=== PATIENT | male | born 1950 | race Caucasian/White ===

== ENCOUNTER 2019-12-30 06:48 | Outpatient (NON) | payer MEDICARE, SELFPAY ==
[2019-12-31 13:52] LABS: SARS-CoV-2 RNA PCR Negative
== END 2019-12-30 06:49 ==
PROVIDERS: PCP Internal Medicine; Visit Provider Internal Medicine
DX: Z20.828 Contact with and (suspected) exposure to other viral communicable diseases (principal); R50.9 Fever, unspecified
CPT/HCPCS: 87635; C9803; U0003

== ENCOUNTER 2023-01-18 10:17 | Outpatient (CLI) | payer MEDICARE, SELFPAY ==
--- NOTE | ~2023-01-18 | XR_ITS ---
XR abdomen/kub 1V 01/18/2023 10:38 Indication: Renal stones Procedure: KUB Comparison: 08/10/2011 Findings: There are clustered stones in the lower pole of the left kidney. Nonobstructive bowel gas p attern. Moderate lumbar spondylosis. There is osteoarthritis of the hips. Impression: 1: Left nephrolithiasis. Reviewed, dictated and finalized at location A. Impression: 1: Left nephrolithiasis.
== END 2023-01-18 10:18 | disposition home or self-care (01) ==
LOC: ANHIMG 10:24
PROVIDERS: PCP Physician Assistant Medical; Visit Provider Urology
DX: N20.0 Calculus of kidney (principal)
CPT/HCPCS: 74018

== ENCOUNTER 2023-02-22 13:11 | Day surgery (SDC) | payer MEDICARE, SELFPAY ==
[2023-02-22] VITALS (8 sets, daily range): BP systolic 100–132; BP diastolic 67–102; PULSE 66–79; RESP 10–20; TEMP 36.3–36.6; O2SAT 98–100
--- NOTE | ~2023-02-22 | XR_ITS ---
XR abdomen/kub 1V 02/22/2023 13:25 Indication: Preop ESWL Procedure: KUB Comparison: 01/18/2023 Findings: There are left renal stones. Bowel gas pattern nonobstructive. Moderate lumbar spondylosis. No acute osseous abnormality. There is mild osteoarthritis of the hips. Impression: 1: Left nephrolithiasis. Reviewed, dictated and finalized at location B. NT DEVELOPMENT DIRECTOR Impression: 1: Left nephrolithiasis.
--- NOTE | 2023-02-22 12:42 | ECG_ITS ---
Measurements Intervals [place] Rate: 65 P: 50 ME: 170 QRS: -18 QRSD: 99 T: 22 QT: 414 QTc: 431 Interpretive Statements SINUS RHYTHM NO PREVIOUS ECG AVAILABLE FOR COMPARISON Electronically Signed On 02-23-2023 13:06:38 DIRECTOR PEDIATRIC by Dereje Ruiz M.D.
[2023-02-22 13:25] LABS: Appearance Urine Clear (Clear); Bilirubin Urine Negative (Negative); Blood Urine Negative (Negative); Color Urine Yellow (Yellow); Glucose Urine UA Negative (Negative); Ketones Urine 1+ mg/dL (Negative); Leukocyte Esterase Ur Negative LEU/UL (Negative); Nitrate Urine Negative (Negative); Protein Urine Negative (Negative); Specific Grav Ur 1.025 (1.001-1.035); Urobilinogen Urine 0.2 mg/dL (<2.0); pH Urine 5.5 (5.0-9.0)
[2023-02-22 13:42] LABS: Add Urine Microscopic? NO
--- NOTE | 2023-02-22 14:14 | WPDANESEPPF ---
Anes - Initial Pre Proc Eval Procedure: Operation Date: 02/22/23 14:00 Proposed Procedures p Left Extracorporeal Shock Wave Lithotripsy - Matthew Eagle MD Date/Time: 02/22/23 14:14 Surgeon: Matthew Eagle MD Pre Op Diagnosis: Left ESWL Patient Data Age: 72 Gender: M Height: Weight: Last Vital Signs Temp 36.6 C 02/22/23 13:40 Pulse 78 02/22/23 13:40 Resp 20 02/22/23 13:40 BP 132/78 02/22/23 13:40 Pulse Ox 100 02/22/23 13:40 O2 Del Method Room Air 02/22/23 13:40 Allergies Allergy/AdvReac Type Severity Reaction Status Date / Time No Known Allergies Allergy Unknown Verified 02/22/23 13:42 Home Medications Medication Instructions Recorded Confirmed Type aspirin 81 mg tablet,delayed 81 mg PO DAILY 10/25/21 02/22/23 History release (Adult Low Dose Aspirin) hydrochlorothiazide 12.5 mg tablet See Rx Instructions .Route 02/04/23 02/22/23 Rx .COMPLEX #90 tabs pravastatin 40 mg tablet See Rx Instructions .Route 02/04/23 02/22/23 Rx .COMPLEX #90 tabs Laboratory Tests 02/22/23 13:18 Urine Color Yellow (Yellow) Urine Appearance Clear (Clear) Urine pH 5.5 (5.0-9.0) Ur Specific [place] 1.025 (1.001-1.035) Urine Protein Negative mg/dL (Negative) Urine Glucose (UA) Negative mg/dL (Negative) Urine Ketones 1+ H mg/dL (Negative) Ur Blood (Man) Negative (Negative) Urine Nitrate Negative (Negative) Urine Bilirubin Negative (Negative) Urine Urobilinogen 0.2 mg/dL (<2.0) Leukocyte Esterase Rfl Negative OVIDIO/UL (Negative) Patient hx anesthesia problems: none Family hx anesthesia problems: none Results Review: All pre-operative results and documents have been reviewed as part of the pre-operative evaluation. [facility]LY [facility] Past Medical History Medical History Annual physical exam Dvt femoral (deep venous thrombosis) History of kidney stones HTN (hypertension) Shingles Surgical History Surgical History History of knee surgery stem cell regeneration therapy Social History Social History Smoking status: Never smoker Alcohol intake: current Substance use: never Substance use type: does not use Lack of Transportation: No Lack of Food: Never True Current Housing: I Have Housing Concerned About Future Housing: No Difficulty Paying Gas/Electric Bills: No Difficulty Paying for Meds: No Currently Unemployed: No Education: High School Diploma/GED Difficulty w/ Childcare or Family Care: No Living arrangements: with family Occupation/Education: retired Gender identity (if verbalized by the patient): Male Sexual Orientation (if Verbalized by the Patient): Straight or Heterosexual Spiritual care concerns: Yes Anes - Eval Final PreProcedure Day of Procedure 02/22/23 14:14 Patient weight: normal Heart: regular rate and rhythm Lungs: clear to auscultation Airway: Mallampati scale class II and special considerations retrognathia Neurological: alert and oriented Last oral intake: >/= 8 hours ASA classification: II Emergent: no Anesthetic plan: proceed Anesthesia type and monitoring: general LMA and standard monitoring Results Review: All pre-operative results and documents have been reviewed as part of the pre-operative evaluation. Informed Consent: The patient's anesthetic plan and its attendant risks and benefits were discussed with the patient/family/POA. Questions were solicited and answers provided to the satisfaction of the patient/family/POA.
[2023-02-22] MEDS: LACTATED RINGERS 1,000 ML 30 ML IV CONT (14:20)
[2023-02-22 14:46] LABS: Prothrombin Time 13.9 Seconds (11.1-14.7)
[2023-02-22 14:47] LABS: Partial Thromboplastin Time 30.3 SECONDS (22.3-36.8)
--- NOTE | 2023-02-22 14:57 | P.HP_ITS ---
H&P: HPI History of Present Illness Date/Time: 02/22/23 14:57 Chief Complaint: left renal calculus Narrative: 72 yr old male wit left renal calculus presents for left renal eswl Review of Systems Review of Systems: All systems reviewed & are unremarkable except as noted in HPI and below PMFSH Past Medical History Medical History Annual physical exam Dvt femoral (deep venous thrombosis) History of kidney stones HTN (hypertension) Shingles Surgical History Surgical History History of knee surgery stem cell regeneration therapy Social History Social History Smoking status: Never smoker Alcohol intake: current Substance use: never Substance use type: does not use Lack of Transportation: No Lack of Food: Never True Current Housing: I Have Housing Concerned About Future Housing: No Difficulty Paying Gas/Electric Bills: No Difficulty Paying for Meds: No Currently Unemployed: No Education: High School Diploma/GED Difficulty w/ Childcare or Family Care: No Living arrangements: with family Occupation/Education: retired Gender identity (if verbalized by the patient): Male Sexual Orientation (if Verbalized by the Patient): Straight or Heterosexual Spiritual care concerns: Yes Meds Home Medications and Allergies Home Medications Medication Instructions Recorded Confirmed Type aspirin 81 mg tablet,delayed 81 mg PO DAILY 10/25/21 02/22/23 History release (Adult Low Dose Aspirin) hydrochlorothiazide 12.5 mg tablet See Rx Instructions .Route 02/04/23 02/22/23 Rx .COMPLEX #90 tabs pravastatin 40 mg tablet See Rx Instructions .Route 02/04/23 02/22/23 Rx .COMPLEX #90 tabs Allergies Allergy/AdvReac Type Severity Reaction Status Date / Time No Known Allergies Allergy Unknown Verified 02/22/23 13:42 Vital Signs Vital Signs - 24 hr 02/22/23 13:40 02/22/23 14:24 Temperature 36.6 C 36.6 C Pulse Rate 78 78 Respiratory Rate 20 16 Blood Pressure 132/78 132/78 Pulse Oximetry 100 100 Oxygen Delivery Room Air Room Air Exam Const: General: cooperative and comfortable Resp: Effort & Inspection: normal respiratory effort Cardio: Rate: regular rate Rhythm: regular rhythm H&P: Results Labs Labs: Urine 02/22/23 Range/Units 13:18 Urine Color Yellow (Yellow) Urine Appearance Clear (Clear) Urine pH 5.5 (5.0-9.0) Ur Specific [place] 1.025 (1.001-1.035) Urine Protein Negative (Negative) mg/dL Urine Glucose (UA) Negative (Negative) mg/dL Assessment and Plan Assessment and plan (1) Left renal stone: Code(s): N20.0 - Calculus of kidney Status: Acute Assessment and Plan: Proceed with left renal eswl
--- NOTE | 2023-02-22 14:58 | WPDHPUPDATE1 ---
History and Physical Update Update Date/Time: 02/22/23 14:58 History and Physical has been reviewed, including an updated exam of the patient. There are NO changes in the patient's condition. Risks, benefits, and alternatives have been discussed and questions answered. Patient agrees to proceed with procedure. Proceed with left renal eswl
[2023-02-22] MEDS: ceFAZolin 2 GM/D5W 50 ML 2 GM/50 ML BAG IVPB (15:04)
--- NOTE | 2023-02-22 15:42 | P.OP_ITS ---
Procedure Note - Detailed Date of Procedure 02/22/23 Pre-op Diagnosis Left Renal calculus Post-op Diagnosis Same Procedure Performed Lithotripsy of left renal calculus Surgeon Matthew Eagle MD Anesthesia General Description of Procedure Patient is taken the operative suite and correctly identified. Once anesthesia was obtained the stone left kidney was visualized under both planes. Two thousand five hundred shocks were given the stone. Patient tolerated procedure well without complications is taken recovery stable condition. He will follow- up in 7-10 days with KUB. This completes dictation on this patient. Please send a copy of this op note to my office. Estimated Blood Loss 0 Drains No Packing No Pathology None sent Complications No immediate complications Condition Stable Disposition PACU
--- NOTE | 2023-02-22 16:04 | SUR.PHASEI ---
1602: Patient woke up and reached up to mouth. Patient noted to have something in his hand. This RN asked patient to see what he had in his hand and it was one of his bottom teeth. Tooth placed into a cup with a lid and labeled. will hand off to patient's family.
== END 2023-02-22 17:19 | disposition home or self-care (01) ==
PROVIDERS: PCP Physician Assistant Medical; Visit Provider Urology
PROC: (CPT 50590; principal; 2023-02-22 14:00)
DX: N20.0 Calculus of kidney (principal); I10 Essential (primary) hypertension; Z79.82 Long term (current) use of aspirin; Z86.718 Personal history of other venous thrombosis and embolism
CPT/HCPCS: 50590; 36415; 74018; 81003; 85610; 85730; 93005; J0690; J2405; J2704; J3010; J7120

== ENCOUNTER 2023-03-06 09:45 | Outpatient (CLI) | payer MEDICARE, SELFPAY ==
--- NOTE | ~2023-03-06 | XR_ITS ---
EXAMINATION: XR abdomen/kub 1V INDICATION: Calcium kidney stone TECHNIQUE: Supine views of the abdomen were obtained on 2 radiographs. COMPARISON: 02/22/2023 FINDINGS: An 11 mm x 4 mm stone is seen in the left kidney lower pole which appears to be less dense than on the comparison examination. No additional urolithiasis is identified. No stones or stone frag ments are identified along the expected course of the left ureter or in the urinary bladder. The vicky l gas pattern is normal. Calcified atherosclerosis is noted. The visualized lung bases are clear. The re is moderate osteoarthritis of the hips. IMPRESSION: 1. Decrease in density of a left kidney lower pole stone, likely due to interval lithotripsy. Reviewed, dictated and finalized at location B. NICAL LABORATORY ASST IMPRESSION: 1. Decrease in density of a left kidney lower pole stone, likely due to interva l lithotripsy.
== END 2023-03-06 09:46 | disposition home or self-care (01) ==
PROVIDERS: PCP Physician Assistant Medical; Visit Provider Urology
DX: N20.0 Calculus of kidney (principal)
CPT/HCPCS: 74018

== ENCOUNTER 2023-04-11 13:56 | Outpatient (CLI) | payer MEDICARE, SELFPAY ==
--- NOTE | ~2023-04-11 | XR_ITS ---
XR abdomen/kub 1V 04/11/2023 14:20 Indication: Renal stone. Follow-up lithotripsy. Procedure: KUB Comparison: Comparison to multiple prior studies sequentially, with oldest reviewed study dated 08/09. Findings: Bowel gas pattern is nonobstructive. Moderate colonic fecal loading. There are multiple lef t renal stones, largest measuring approximately 5 mm. Moderate lumbar spondylosis. No acute osseous a bnormality. Impression: 1: Left nephrolithiasis. Reviewed, dictated and finalized at location L. TH AND SAFETY DIRECTOR Impression: 1: Left nephrolithiasis.
== END 2023-04-11 13:57 | disposition home or self-care (01) ==
PROVIDERS: PCP Physician Assistant Medical; Visit Provider Urology
DX: N20.0 Calculus of kidney (principal)
CPT/HCPCS: 74018

== ENCOUNTER 2023-10-07 09:58 | Outpatient (CLI) | payer MEDICARE, SELFPAY ==
--- NOTE | ~2023-10-07 | XR_ITS ---
XR abdomen/kub 1V 10/07/2023 10:16 Indication: Six-month follow-up renal stone Procedure: KUB Comparison: Comparison to multiple prior studies sequentially, with oldest reviewed study dated 05/2022. Findings: There is stones in the left kidney. Bowel gas pattern nonobstructive. Moderate colonic feca l loading. Lung bases unremarkable. Impression: 1: Left renal stones. Reviewed, dictated and finalized at location B. Impression: 1: Left renal stones.
== END 2023-10-07 09:59 | disposition home or self-care (01) ==
LOC: ANHIMG 10:02
PROVIDERS: PCP Physician Assistant Medical; Visit Provider Urology
DX: N20.0 Calculus of kidney (principal)
CPT/HCPCS: 74018

== ENCOUNTER 2024-10-12 10:11 | Outpatient (CLI) | payer MEDICARE, SELFPAY ==
--- NOTE | ~2024-10-12 | XR_ITS ---
XR abdomen/kub 1V 10/12/2024 10:36 Indication: Renal stones Procedure: KUB Comparison: Comparison to multiple prior studies sequentially, with oldest reviewed study dated 05/2022. Findings: There are bilateral renal stones. Bowel gas pattern nonobstructive. Moderate colonic fecal loading. No acute osseous abnormality. Moderate lumbar spondylosis. Impression: 1: Bilateral nephrolithiasis. Reviewed, dictated and finalized at location A. Impression: 1: Bilateral nephrolithiasis.
--- OUTSIDE RECORDS SUMMARY | 2024-10-12 10:39 | XMS_ITS | Continuity of Care Document ---
Author Organization [facility] Address [address] [place] [address] Phone Care Team Providers Care Print Color Matcher Name Role Phone Alivn Thurman OD, OD Unavailable Unavailab le Allergies, Adverse Reactions, Alerts Substance Reaction Status Criticality No Known Allergies Active No Inform ation Medications Medication Instructions Dosage Effective Dates (start - stop) Status Comments acyclovir 400 mg tablet take 1 tablet by oral route every day 400 MG - Active Brukinsa 80 mg capsule take 2 capsule by oral route 2 times every day 160 MG - Active Bactrim DS 800 mg-160 mg tablet take 1 tablet by oral route every 12 hours 1.00 tablet - Active Onglyza 5 mg tablet take 1 tablet by oral route every day - Active hydrocodone 7.5 mg-acetaminophen 325 mg tablet take 1 tablet by oral route every 6 hours as needed for pain 1.00 tablet - Active Multiple Vitamins tablet take 1 tablet by oral route every day with food - Active magnesium 200 mg tablet - Active lisinopril 5 mg tablet take 1 tablet by oral route every day 5 MG - Active atorvastatin 40 mg tablet take 1 tablet by oral route every day 40 MG - Active Prilosec 20 mg capsule,delayed release take 1 capsule by oral route every day 30 minutes to 1 hour before a meal - Active aspirin 81 mg tablet,delayed release take 1 tablet by oral route every day 81 MG - Active metformin 500 mg tablet take 1 tablet by oral route 2 times every day with morning and evening meals 500 MG - Active gabapentin 300 mg capsule take 1 capsule by oral route 3 times every day 300 MG - Active Procedures Procedure Date OFFICE/OUTPATIENT VISIT, EST OFFICE/OUTPATIENT VISIT, EST OFFICE/OUTPATIENT VISIT, EST EYE EXAM & TREATMENT REFRACTION EYE EXAM & TREATMENT REFRACTION POSTOP FOLLOW-UP VISIT POSTOP FOLLOW-UP VISIT Extracapsular Cataract Removal With Inse rtion Of Intraocular Lens REFRACTION OPHTHALMIC BIOMETRY EYE EXAM & TREATMENT REFRACTION EYE EXAM & TREATMENT OFFICE/OUTPATIENT VISIT, EST OFFICE/OUTPATIENT VISIT, EST Dilated Retinal Eye Exam W Interp Medication Reviewed/Updated TOBACCO NON-USER PT FALLS ASSESS-DOC'D LE/ HEMOGLOBIN A1C LEVEL > 9.0% Influenza Immunization Not Received PNEUMOC VAC/ADMIN/RCV'D EYE EXAM & TREATMENT EYE EXAM ESTABLISHED PAT REFRACTION POSTOP FOLLOW-UP VISIT REFRACTION POSTOP FOLLOW-UP VISIT POSTOP FOLLOW-UP VISIT Extracapsular Cataract Remov al With Insertion Of Intraocular Lens Prosthesis Man REFRACTION OPHTHALMIC BIOMETRY OFFICE/OUTPATIENT VISIT, EST REFRACTION EYE EXAM & TREATMENT OFFICE/OUTPATIENT VISIT, EST EYE EXAM & TREATMENT OFFICE/OUTPATIENT VISIT, NEW Advance Directives Directive Yes / No Effective Date File Name No Information Encounters Encounter Description Practice Location Reason(s) For Visit Diagnoses Date Provider Providers Copied on Encounter OFFICE/OUTPA TIENT VISIT, EST [facility] [place], [id number] tel:[phone] [facility] NIDDM - Medication Controlled right eye and left eye s (chief complaint) Type 2 diabetes mellitus without complication, without long-term current use of insulinKeratoco njunct sicca, not specified as Sjogren's, bilateralLong term current use of oral hypoglycemic drug 5 Isgrig OD Alvin. [facility], [place], [id number]. tel:[phone] Referring Provider: Alvin Thurman OD, [facility] [place], [address]. tel:[phone] OFFICE/OUTPA TIENT VISIT, EST [facility], [place], [id number] tel:[phone] [facility] NIDDM - Medication Controlled right eye and left eye s (chief complaint)P CO right eye and left eye 1 year(s) (chief complaint) Type 2 diabetes mellitus without complication, without long-term current use of insulinPCO (posterior capsular opacification), rightLong term current use of oral hypoglycemic drug 4 Isgrig OD Alvin. [facility], [place], [id number]. tel:[phone] Referring Provider: Alvin Thurman OD, [facility] [place], [address]. tel:[phone] OFFICE/OUTPA TIENT VISIT, EST [facility], [place], [id number] tel:[phone] [facility] Type 2 diabetes mellitus right eye and left eye year(s (chief complaint) Type 2 diabetes mellitus without complication, without long-term current use of insulinPresence of intraocular lensLong term current use of oral hypoglycemic drugPCO (posterior capsular opacification), right May- 3 Isgrig OD Alvin. [facility], [place], [id number]. tel:[phone] Referring Provider: Alvin Thurman OD, [facility], [address]. tel:[phone] [facility], [facility] [address] [place], [place], [id number] tel:[phone] [facility] NIDDM - Medication Controlled right eye and left eye s (chief complaint) Type 2 diabetes mellitus without complication, without long-term current use of insulinLong term current use of oral hypoglycemic drugKeratoconju nct sicca, not specified as Sjogren's, bilateral Apr- 2 Isgrig OD Alvin. [facility], [facility] [address] [place], [place], [id number]. tel:[phone] Referring Provider: Alvin Thurman OD, [facility] [place], [address]. tel:[phone] [facility], [facility] [address] [place], [place], [id number] tel:[phone] [facility] foggy vision left eye 2 year(s) (chief complaint)N IDDM (2011) right eye and left eye 8 year(s) (chief complaint)c omments only (chief complaint) Keratoconjunct sicca, not specified as Sjogren's, bilateralAfter- cataract with vision obscured of both eyesType 2 diabetes mellitus without complication, without long-term current use of insulinLong term (current) use of oral hypoglycemic drugs Apr- 0 [facility], [facility] [address] [place], [place], [id number]. tel:[phone] Referring Provider: Tevin Simon MD S, [facility] [place], [address]. tel:[phone] [facility], [facility] [place], [id number] tel:[phone] [facility] Presence of intraocular lens 2-201 8 [facility], [facility] [place], [id number]. tel:[phone] Referring Provider: Tevin Simon MD S, [facility] [place], [address]. tel:[phone] [facility], [facility] [address] [place], [place], [id number] tel:[phone] [facility] Presence of intraocular lens b-0 6 8 [facility], [facility] [address] [place], [place], [id number]. tel:[phone] Referring Provider: Tevin Simon MD S, [facility] [place], [address]. tel:[phone] [facility], [facility] [place], [id number] tel: [phone] [address] No Information Apr-0 8 [facility], [facility] [address] [place], [place], [id number]. tel:[phone] Referring Provider: Tevin Simon MD S, [facility] [address] [place], [place] [address] [place], [address]. tel:[phone] [facility], [facility] [place], [id number] tel: [phone] [facility] Combined forms of age-related cataract, right eyeType 2 diabetes mellitus without complication, without long-term current use of insulinLong term current use of oral hypoglycemic drugOther secondary cataract, left eyeKeratoconjun ct sicca, not specified as Sjogren's, bilateralPresen ce of intraocular lens Nov- 2 7 [facility], [facility] [address] [place], [place], [id number]. tel: [phone] [facility], [facility] [place], [place], [id number] tel: [phone] [facility] Age-related nuclear cataract, right eyeKeratoconjun ct sicca, not specified as Sjogren's, bilateralType 2 diabetes mellitus without complication, without long-term current use of insulinOther secondary cataract, left eye Jun- 7 [facility], [facility] [place], [id number]. tel: OFFICE/OUTPA TIENT VISIT, EST [facility], [facility] [place], [id number] tel: [facility] DM w/o complication type IISenile nuclear sclerosis, rightOther secondary cataract, left eyeKeratoconjun ct sicca, not specified as Sjogren's, bilateralPresen ce of intraocular lens Jun- 6 [facility], [facility] [place], [id number]. tel: OFFICE/OUTPA TIENT VISIT, EST [facility], [facility] [place], [id number] tel: [facility] Diabetes Mellitus Type 2, UncomplicatedTe ar film insufficiency, unspecifiedOthe r and combined forms of senile cataractLens replaced by other means Jun- 5 [facility], [facility] [place], [id number]. tel: [facility], [facility] [place], [id number] tel: [facility] Other and combined forms of senile cataractLens replaced by other meansVitreous degenerationTea r film insufficiency, unspecified Apr-1 0- 4 [facility], [facility] [place], [id number]. tel:[phone] [facility], [facility] [place], [id number] tel:[phone] [facility] Superficial keratitis, unspecified Oct-0 - 3 [facility], [address] [place], [place], [id number]. tel:[phone] [facility], [address] [place], [place], [id number] tel:[phone] [facility] Lens replaced by other means 3 [facility], [address] [place], [place], [id number]. tel:[phone] [facility], [address], [place], [id number] tel:[phone] [facility] [place] Lens replaced by other means 3 [facility], [address] [place], [place], [id number]. tel:[phone] [facility], [address] [place], [place], [id number] tel:[phone] [facility] [place] Lens replaced by other means 3 [facility], [address] [place], [place], [id number]. tel:[phone] [facility], [address] [place], [place], [id number] tel:[phone] No Information 3 [facility], [address] [place], [place], [id number]. tel:[phone] OFFICE/OUTPA TIENT VISIT, EST [facility], [address] [place], [place], [id number] tel:[phone] [facility] Other and combined forms of senile cataractDermato chalasisVitreou s degenerationTea r film insufficiency, unspecified 2 [facility], [address] [place], [id number]. tel:[phone] [facility], [address], [place], [id number] tel:[phone] [facility] Other and combined forms of senile cataractTear film insufficiency, unspecifiedDerm atochalasisVitr eous degeneration 2 [facility], [facility] [place], [id number]. tel:[phone] OFFICE/OUTPA TIENT VISIT, [facility], [facility] [address] [place], [place], [id number] tel:[phone] [facility] Tear film insufficiency, unspecifiedBlep haritis, unspecifiedOthe r and combined forms of senile cataractDermato chalasisVitreou s degeneration 2 [facility], [address] [place] [address] [place], [id number]. tel:[phone] [facility], [address] [place] [address] [place], [id number] tel:[phone] [facility] Other and combined forms of senile cataractBlephar itis, unspecifiedTear film insufficiency, unspecifiedVitr eous degeneration 1 [facility], [facility] [place], [id number]. tel:[phone] OFFICE/OUTPA TIENT VISIT, [facility], [facility] [place], [id number] tel:[phone] [facility] Other and combined forms of senile cataractDermato chalasisVitreou s degenerationBle pharitis, unspecified 1 [facility], [facility] [place], [id number]. tel:[phone] Family History Family Member Type Diagnosis Age At Onset Sister Problem (finding) cataract Mother Problem (finding) cataract Sister Problem (finding) Retinal Detachment Payers Payer name Insurance type Covered alliance party ID Authoriza tion(s) Medicare [place] MB [id number] [facility] [id number] Social History Type Description Quantity Date Captured Comments Alcohol Use Details No Caffeine Use Details Unknown Tobacco Use Status Current non-smoker Smoking Status Never smoker Non-Smoking Tobacco Use Details : No Details Available : No Details Available Sex Male Chief Complaint And Reason For Visit From encounter dated '07/02/2024 12:40'. NIDDM - Medication Controlled right eye and left eye s (chief complaint) Reason For Referral Reason For Referral No Information History Of Present Illness Encounter Date Complaint History Of Prese nt Illness NIDDM - Medication Controlled Th e 73 year old male presents for NIDDM - Medication Controlled in the right eye and left eye. It started several years ago. Pt reports blurry vision, FBS sometimes. BS - 89 this AMA1C - unknown PCO The 72 year old presents for evaluation of PCO in the right eye and left eye. It started about 1 year(s) ago. The symptom is constant. The condition is stable. NIDDM - Medication Controlled Th e 72 year old presents for evaluation of NIDDM - Medication Controlled in the right eye and left eye. It started several years ago. The symptom is constant. The condition is stable. A1C ? Type 2 diabetes mellitus The 71 year old presents for evaluation of Type 2 diabetes mellitus in the right eye and left eye. It started year(s) ago. The symptom is constant. The condition is stable. NIDDM - Medication Controlled Th e 70 year old presents for evaluation of NIDDM - Medication Controlled in the right eye and left eye. It started several years ago. The symptom is constant. The condition is stable. A1C ? . foggy vision The 68 year old presents for evaluation of foggy vision in the left eye. It started about 2 year(s) ago. The symptom is constant. It occurs at night. The condition is worsening. The condition is described as blurring c glare. In addition, the condition is associated with lights starbursting. comments only HX: PC IOL OU; P CO OS; KCS OU NIDDM (2011) The 68 year old presents for evaluation of NIDDM (2011) in the right eye and left eye. It started about 8 year(s) ago. The symptom is constant. The condition is moderate. BSs running pretty good. Functional Status Date Functional Assessmen t No Information Instructions Date Instruction Additional Infor carol ann Return in 1 year wit h Alvin Thurman OD for Complete. Related to Type 2 diabetes mellitus without complication, without long-term current use of insulin Impression/Plan Related to retirement current use of oral hypoglycemic drug Impression/Plan Related to Kerat oconjunct sicca, not specified as Sjogren's, bilateral Impression/Plan Related to Type 2 diabetes mellitus without complication, without long-term current use of insulin Return in 1 year wit h Alvin Thurman OD for Complete and Dilate. Related to Type 2 diabetes mellitus without complication, without long-term current use of insulin Impression/Plan Related to [employer] current use of oral hypoglycemic drug Impression/Plan Related to Type 2 diabetes mellitus without complication, without long-term current use of insulin Impression/Plan Related to PCO ( posterior capsular opacification), right Return in 1 year wit h Alvin Thurman OD for Complete and Dilate. Related to Type 2 diabetes mellitus without complication, without long-term current use of insulin Impression/Plan Related to Type 2 diabetes mellitus without complication, without long-term current use of insulin Impression/Plan Related to Prese nce of intraocular lens Impression/Plan Related to PCO ( posterior capsular opacification), right Impression/Plan Related to retirement current use of oral hypoglycemic drug Return in 1 year wit h Alvin Thurman OD for Complete. Related to Type 2 diabetes mellitus without complication, without long-term current use of insulin Impression/Plan Related to Kerat oconjunct sicca, not specified as Sjogren's, bilateral Impression/Plan Related to Type 2 diabetes mellitus without complication, without long-term current use of insulin Impression/Plan Related to retirement current use of oral hypoglycemic drug Return in 2 year Alvin Isaacs OD for Complete. Related to Type 2 diabetes mellitus without complication, without long-term current use of insulin Impression/Plan Related to Kerat oconjunct sicca, not specified as Sjogren's, bilateral Impression/Plan Related to After -cataract with vision obscured of both eyes Impression/Plan Related to Type 2 diabetes mellitus without complication, without long-term current use of insulin Impression/Plan Related to [employer] (current) use of oral hypoglycemic drugs Follow up - Return i n 2 years with Tevin Simon MD for Complete. Related to Presence of intraocular lens Presence of intraocu lar lens OD Condition: established, stable. - pt should have stopped the vigamox after 1 week and should now be using durezol and Ilevro just 1 time a day for 2 more weeks , call if any pain , increased red or decreased va, RECMD pt go to the DMV and have the restrictions removed from the drivers license, sometimes after patients stop the drops they can get some inflammation in the eye we may need to restart the drops for a short amount of time to clear up the inflammation , call us if any problems with pain , redness or decreased vision. gave the pt a new MRX today Related to Presence of intraocular lens Presence of intraocu lar lens OD Condition: established, stable. - Continue vigamox 3 times daily for 1 week, durezol 1 time daily for 1 month, and bromsite 2 times daily for 1 week then 1 time daily for 3 more weeks. call stat with any increase pain decrease vision or redness. no swimming for 3 weeks, no rubbing the eye, you can shower but no water in the eye, no heavy lifting, bending, straining or stooping. continue to monitor as scheduled. Post op instruction reviewed and given to patient. Related to Presence of intraocular lens - Return in as scheduled Related to Presence of intraocular lens - Return in as scheduled for cat sx Related to Combined form of age-related cataract, right eye retirement current us e of oral hypoglycemic drug OU Condition: established, stable. - see plan #2 Related to retirement current use of oral hypoglycemic drug Type 2 diabetes marques itus without complication, without long-term current use of insulin OU Condition: established, stable. - Discussed with patient diabetic changes that can occur in the eye. No diabetic changes in the eye seen today. Stressed good blood sugar control and need for eye exams. Continue to monitor. Will send a letter to diabetic doctor regarding status of eyes. Related to Type 2 diabetes mellitus without complication, without long-term current use of insulin Keratoconjunctivitis sicca of both eyes not specified as Sjogren's OU Condition: established, stable. - discussed eyes are dry on exam recmd pt use ATs several times daily (4-6) times daily to help improve dryness prior to cat sx. cont to monitor Related to Keratoconjunctivitis sicca of both eyes not specified as Sjogren's After-cataract of le ft eye with vision obscured OS Condition: established, stable. - if and or when becomes bothersome can remove haze with laser. 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 - Only way to improve vision is to do cataract surgery Explained cat surgery with R/B/C/A 90 -95 % of patients do fine, but 5-10% have problems including but not limited to : loss of vision, loss of eye, infection, Heme, RD, ptosis, diplopia, IOL dislocation, corneal transplant, corneal decomp cataracts dont harm eye just vision. May need glasses after cat surgery for D and or N. Patient defers premium lens today. IOL master ordered to calculate IOL implant for cataract surgery. PT ELECTS TO PROCEED WITH CAT SX OD, TOP CC, ROUTINE, STANDARD LENS, AIM -.50VIG/DUR/BROMSITE Related to Combined form of age-related cataract, right eye Presence of intraocu lar lens OS Condition: established, stable. - stable Related to Presence of intraocular lens Type 2 diabetes marques itus without complication, without long-term current use of insulin OU Condition: established, stable with treatment. - Discussed with patient diabetic changes that can occur in the eye. No diabetic changes in the eye seen today. Stressed good blood sugar control and need for eye exams. Continue to monitor. Will send a letter to diabetic doctor regarding status of eyes. Related to Type 2 diabetes mellitus without complication, without long-term current use of insulin Senile nuclear scler osis, right OD Condition: established, worsening. - Discussed with patient cataracts are ready to be removed, patient defers at this time will continue to monitor, pt defers due to other health issues we can re eval in 6 mos Related to Senile nuclear sclerosis, right - Return in 6 months with Tevin Simon MD for Complete. Related to Senile nuclear sclerosis, right After-cataract with vision obscured, left OS Condition: established, stable. - minmal pc haze we can laser when bothered Related to After-cataract with vision obscured, left Keratoconjunct sicca , not specified as Sjogren's, bilateral OU Condition: established, stable. - expl to patient the eyes are dry , recmd patient use the Artificial Tears several times a day as needed for dryness, the dryness can get worse in the winter months, dry eyes can cause discomfort in the eyes Related to Keratoconjunct sicca, not specified as Sjogren's, bilateral - Return in 1 year w ith Tevin Simon MD for Complete. Related to DM w/o complication type II DM w/o complication type II OU Condition: established, stable. - Discussed with patient diabetic changes that can occur in the eye. No diabetic changes in the eye seen today. Stressed good blood sugar control and need for eye exams. Continue to monitor. Will send a letter to diabetic doctor regarding status of eyes. Related to DM w/o complication type II Senile nuclear scler osis, right OD Condition: established, stable. - Discussed cataracts with patient and explained no need for surgery at this time, also explained cataracts usually progress slowly overtime. Will continue to monitor. Related to Senile nuclear sclerosis, right After-cataract with vision obscured, left OS Condition: new prob, no addtl w/u needed. - if and or when becomes bothersome can remove haze with laser. cont to monitor Related to After-cataract with vision obscured, left Keratoconjunctivitis sicca, not specified as Sjogr OU Condition: established slightly worse. - use ATs several times daily or as needed for dryness, cont to monitor Related to Keratoconjunctivitis sicca, not specified as Sjogr Presence of intraocu lar lens OS Condition: established, stable. - stable Related to Presence of intraocular lens Lens replaced by oth er means OS Condition: established, stable. - stable Related to Lens replaced by other means Other and combined f orms of senile cataract OD Condition: established, stable. - Discussed cataracts with patient and explained no need for surgery at this time, also explained cataracts usually progress slowly overtime. Will continue to monitor. Related to Other and combined forms of senile cataract Tear film insufficie ncy, unspecified OU Condition: established slightly worse. - recmd pt use ATs several times daily(4-6) or as needed for dryness. cont to monitor Related to Tear film insufficiency, unspecified - Return in 1 year w Tevin Gama MD for Complete. Related to Diabetes Type II Diabetes Type II OU Condition: new prob, no addtl w/u needed. - Educational materials provided: Discussed with patient diabetic changes that can occur in the eye. No diabetic changes in the eye seen today. Stressed good blood sugar control and need for eye exams. Continue to monitor. Will send a letter to diabetic doctor regarding status of eyes. Related to Diabetes Type II Follow up - Return i n 1 year with Tevin Simon MD for Complete. Related to Other and combined forms of senile cataract Lens replaced by oth er means OS Condition: established, stable. - Implant is stable. cont to monitor. Related to Lens replaced by other means Vitreous degeneratio n OS Condition: established, stable. - stable. cont to monitor. call w/ any new flashes or floaters. Related to Vitreous degeneration Tear film insufficie ncy, unspecified OS Condition: established slightly worse. - Recmd pt to use some ATs several times per day. Related to Tear film insufficiency, unspecified Other and combined f orms of senile cataract OD Condition: established, stable. - Educational materials provided: Discussed that cataract is not yet ready to come out. If/ and or when it becomes bothersome pt can have it removed surgically. Cont to monitor, stable right now. Return in 1 year for complete. Related to Other and combined forms of senile cataract Follow up - Return in [facility] ed Related to Superficial keratitis, unspecified Superficial keratiti s, unspecified OS Condition: established, worsening. - Educational materials provided:start systane gel qhs os for 4 days then stop , and ATs q 1-2 hours , expl eye is very dry Related to Superficial keratitis, unspecified Lens replaced by oth er means OS Condition: established, improving. - Educational material provided:doing well va good, but warned pt about pchaze , can laser if needed Related to Lens replaced by other means - Return in 1 year w Tevin Gama MD for Complete. Related to Lens replaced by other means Follow up - Return in [facility] ed Related to Lens replaced by other means Lens replaced by oth er means OS Condition: established, improving. - discussed with patient discontinue Vigamox, continue Nevanac 3 times a day for 3 more weeks and prednisolone 3 times a day for three more weeks. call in any increased pain, increased redness or decreased vision. Do not immerse your head in water for 2 more weeks. No swimming for 2 weeks. Related to Lens replaced by other means Lens replaced by oth er means OS Condition: established, improving. - Discussed with patient continue with Vigamox 3 times a day for 1 week, nevanac 3 times aday for 1 month and Prednisalone 3 times a day for 1 month. call stat with any increased pain, increased redness or any decrease vision. You can shower but dont get any water in the eye, do not immerse your head under water, dont rub the eye. No heavy lifting , bending, stooping or straining. continue to monitor. Related to Lens replaced by other means Follow up - Return in as schedul ed Related to Lens replaced by other means Dermatochalasis OU C ondition: established, stable. - if and or when becomes bothersome pt can see PF. cont to monitor Related to Dermatochalasis Vitreous degeneratio n OS Condition: established, stable. - pt to call with new F/F black cloud or curtain. 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 - discussed only way to improve vision is to do cataract surgery Explained cat surgery with R/B/C/A 90 -95 % of patients do fine, but 5-10% have problems including but not limited to : loss of vision, loss of eye, infection, Heme, RD, ptosis, diplopia, IOL dislocation, corneal transplant, corneal decomp cataracts dont harm eye just vision. May need glasses after cat surgery for D and or N. Patient defers premium lens today. 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 - Discussed cataracts with patient and explained no need for surgery at this time, also explained cataracts usually progress slowly overtime. Will continue to monitor. 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 - Discussed Dry Eye/Superficial Punctate Keratopathy/Tear Film Insufficiency with the patient. Recommend patient use artificial tear several times a day and if no improvement, can consider prescription medicine. Continue to monitor. Related to Tear film insufficiency, unspecified Follow up - Return i n 6 months with Tevin Simon MD for Cataract Consult. 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 - Explained posterior vitreous detachment to the patient. Discussed that it results from the vitreous gel becoming liquefied and breaking its attachments from the back wall of the eye. Discussed why flashes and floaters occur. Discussed risk of retinal detachment associated with a vitreous detachment and if not detected early, can lead to irreversible vision loss. Told to call immediately if any increase in flashes, floaters or a black curtain over view. Discussed that in most people, the brain will learn to ignore the floater and its awareness will diminish over time, but it will still always be present in the eye and may intermittently and momentarily appear in the vision. Continue to monitor. Related to Vitreous degeneration Dermatochalasis OU C ondition: established, stable. - Explained dermatochalasis to patient. It can affect superior visual field. Recommend evaluation with plastics doctor if and or when it becomes bothersome. Continue to monitor. Related to Dermatochalasis Assessments Type Assessment Date assessment Type 2 diabetes marques itus without complication, without long-term current use of insulin assessment Keratoconjunct sicca, not specif ied as Sjogren's, bilateral assessment [employer] current use of oral hy poglycemic drug impression Type 2 diabetes marques itus without complication, without long-term current use of insulin: E11.9 Bilateral. Condition: established, stable impression Keratoconjunct sicca , not specified as Sjogren's, bilateral: H16.223 Bilateral. Condition: established, stable impression [employer] current us e of oral hypoglycemic drug: Z79.84 Bilateral. Condition: established, stable Patient Care Teams Name Effective Dates (start - stop) Status Members No Information
--- OUTSIDE RECORDS SUMMARY | 2024-10-12 10:39 | XMS_ITS | Continuity of Care Document ---
Author Organization [facility] Address [facility] [address] Phone Care Team Providers Care Train Crew Member Name Role Phone Kirsten Rush Unavailable Unavailabl e Allergies, Adverse Reactions, Alerts Substance Reaction Status Criticality No Known Allergies Active No Inform ation Medications Medication Instructions Dosage Effective Dates (start - stop) Status Comments LYRICA (unknown strength) Not Available - Active BACTRIM (unknown strength) Not Available - Active MULTIVITAMINS (unknown strength) Not Available - Active BYDUREON BCISE (unknown strength) inject by subcutaneous route every 7 days in the abdomen, thighs, or outer area of upper arm rotating injectionsites Not Available - Active Toujeo Max U-300 SoloStar 300 unit/mL (3 mL) subcutaneous insulin pen inject by subcutaneous route as per insulin protocol 0.00 - Active ACYCLOVIR (unknown strength) Not Available - Active BRUKINSA (unknown strength) Not Available - Active MAGNESIUM (unknown strength) Not Available - Active GLYXAMBI (unknown strength) Not Available - Active ATORVASTATIN CALCIUM (unknown strength) Not Available - Active LISINOPRIL (unknown strength) Not Available - Active METOPROLOL TARTRATE (unknown strength) Not Available - Active OMEPRAZOLE (unknown strength) Not Available - Active Vazalore 81 mg capsule - Active Procedures Procedure Date Bladder Scan Urine Capacity Measure Us N OV - Established Patient Urinalysis - Automated PSA Venipuncture Cystourethroscopy Urinalysis - Automated OV - Established Patient Bladder Scan Urine Capacity Measure Us M OV - Established Patient Urinalysis - Automated Agt-dna/rna; Annalise Species-a Agt-dna/rna; Cytomegalovirus-a VANOMYCIN, DNA, AMP PROBE Agt-dna/rna; Herpes Simplex-am Staph A, Dna, Amp Probe Strep B, Dna, Amp Probe Agt-dna/rna; Nos-amplified Pro Ag-nucleic Acid Mx Org; Amp Pr OV - Established Patient KUB Xray Abdomen 1 View Bladder Scan Urine Capacity Measure Us M OV - Established Patient Urinalysis - Automated Agt-dna/rna; Annalise Species-a Agt-dna/rna; Cytomegalovirus-a VANOMYCIN, DNA, AMP PROBE Agt-dna/rna; Herpes Simplex-am 24 Staph A, Dna, Amp Probe Strep B, Dna, Amp Probe Agt-dna/rna; Nos-amplified Pro Ag-nucleic Acid Mx Org; Amp Pr Bladder Scan Urine Capacity Measure Us S OV - Established Patient Urinalysis - Automated Urinalysis - Automated Intra-Abdomial Voiding Press (Rectal Cat h) CMG With Voiding Pressure Intrmt Urin Cath Straight Tip 3 Lubricant Per Ounce Intrmt Urin Cath Straight Tip 3 Lubricant Per Ounce OV - Established Patient Cysto Stent Removal; Simple 4.39 Aug-10- 2023 OV - Established Patient KUB Xray Abdomen 1 View Bladder Scan Urine Capacity Measure Us A Indwelling Cath- Latex - 2 Way Leg Bag Catheterization, Simple Overnight Bag OV - Established Patient Urinalysis - Automated Ureteroscopy 8.77 Cysto / Stent Placemt 4.14 KUB Xray Abdomen 1 View Bladder Scan Urine Capacity Measure Us J CT Abd/Pelvis W/Out Contrast Venipuncture OV - New Patient Urinalysis - Automated Advance Directives Directive Yes / No Effective Date File Name No Information Encounters Encounter Description Practice Location Reason(s) For Visit Diagnoses Date Provider Providers Copied on Encounter [facility], [address] [place], [place], [id number], [place] tel:[phone] [facility] No Information 5 Sukh Curtis. [address] [place], [place], [id number], [place]. tel:[phone] OV - Established Patient [facility], [address] [place], [id number], [place] tel:[phone] [facility] Retention of urine, unspecifiedMale erectile dysfunction, unspecifiedGlyco suria 4 Sukh Curtis. [address] [place], [place], [id number], [place]. tel:[phone] Referring Provider: Maikel Tomas, [address] [place], [address]. tel:[phone] OV - Established Patient [facility], [address], [id number], [place] tel:[phone] [facility] Splitting of urinary streamMale erectile dysfunction, unspecifiedMale erectile dysfunction, unspecified 4 Reynaldo Mcclendon. [address] [place] [address], [id number], [place]. tel:[phone] Referring Provider: Maikel Tomas, [address], [place], [address]. tel:[phone] OV - Established Patient [facility] , [address] [place] [address] [place], [place], [id number], [place] tel:[phone] [facility] Feeling of incomplete bladder emptyingFrequenc y of micturitionMale erectile dysfunction, unspecifiedSplit ting of urinary stream 4 Sukh Curtis. [address] [place] [address], [id number], [place]. tel:[phone] Referring Provider: Maikel Tomas, [address] [place], [address]. tel:[phone] [facility] , [address] [place] [address] [place], [id number], [place] tel:[phone] [facility] Urinary tract infection, site not specified 4 Lionel Reese. [address] [place] [address], [id number], [place]. tel:[phone] Referring Provider: Maikel Tomas, [address] [place], [address]. tel:[phone] OV - Established Patient [facility] , [address] [place] [address] [place], [id number], [place] tel:[phone] [facility] Male erectile dysfunction, unspecified May- 4 Sukh Curtis. [address] [place] [address], [id number], [place]. tel:[phone] Referring Provider: Maikel Tomas, [address], [place], [address]. tel:[phone] OV - Established Patient [facility] , [address] [place] [address] [place], [id number], [place] tel:[phone] [facility] Personal history of urinary calculiFeeling of incomplete bladder emptyingCalculus of kidneyMale erectile dysfunction, unspecifiedFrequ ency of micturition May- 0- 4 Sukh Curtis. [address] [place] [address], [id number], [place]. tel:[phone] Referring Provider: Maikel Tomas, [address] [place], [address]. tel:[phone] [facility], [address] [place] [address] [place], [id number], [place] tel:[phone] [facility] Urinary tract infection, site not specifiedMale erectile dysfunction, unspecified May- 4 Sandy Gonzalez. [address] [place] [address], [id number], [place]. tel:[phone] Referring Provider: Maikel Tomas, [address] [place], [address]. tel:[phone] OV - Established Patient [facility] , [address] [place] [address] [place], [id number], [place] tel:[phone] [facility] Retention of urine, unspecifiedBenig n prostatic hyperplasia with lower urinary tract symptomsCalculus of kidneyUrinary tract infection, site not specifiedBenign prostatic hyperplasia with lower urinary tract symptomsCalculus of kidneyUrinary tract infection, site not specified Nov- 3 [place]res[place] Hakan. [address] [place] [address], [id number], [place]. tel:[phone] Referring Provider: Maikel Tomas, [place], [address]. tel:[phone] [facility], [address] [place] [address] [place], [place], [id number], [place] tel:[phone] [facility] Retention of urine, unspecified Oct- 3 [place] Hakan. [address] [place] [address], [id number], [place]. tel:[phone] Referring Provider: Maikel Tomas, [address] [place], [address]. tel:[phone] [facility] , [address] [place] [address], [id number], [place] tel:[phone] [facility] No Information 3 Panfiloadrianodonald Mcclendon. [address] [place] [address], [id number], [place]. tel:[phone] Referring Provider: Hakan Jacobs, [address] [place] [address], [id number] . tel:[phone] [facility] , [address] [place] [address], [id number], [place] tel:[phone] [facility] No Information 3 Reynaldo Mcclendon. [address] [place] [address], [id number], [place]. tel:[phone] Referring Provider: Hakan Jacobs, [address] [place] [address], [id number] . tel:[phone] OV - Established Patient [facility] , [address] [place] [address], [id number], [place] tel:[phone] [facility] Retention of urine, unspecifiedBenig n prostatic hyperplasia with lower urinary tract symptomsCalculus of kidneyUrinary tract infection, site not specifiedRetenti on of urine, unspecifiedBenig n prostatic hyperplasia with lower urinary tract symptomsCalculus of kidneyUrinary tract infection, site not specified 3 Reynaldo Hakan. [address] [place] [address], [id number], [place]. tel:[phone] Referring Provider: Maikel Tomas, [address] [place], [address]. tel:[phone] OV - Established Patient [facility], [address] [place], [place] [address] [place], [place], [id number], [place] tel:[phone] [facility] Calculus of ureter 3 Reynaldo Mcclendon. [address] [place] [address], [id number], [place]. tel:[phone] Referring Provider: Maikel Tomas, [address] [place], [address]. tel:[phone] OV - Established Patient [facility], [address] [place], [place] [address] [place], [id number], [place] tel:[phone] [facility] Calculus of ureterRetention of urine, unspecifiedReten tion of urine, unspecifiedReten tion of urine, unspecified 3 Sukh Curtis. [address] [place] [address], [id number], [place]. tel:[phone] Referring Provider: Maikel Tomas, [address] [place], [address]. tel:[phone] [facility], [address] [place] [address] [place], [id number], [place] tel:[phone] [facility] Calculus of ureter 3 Reynaldo Mcclendon. [address] [place] [address], [id number], [place]. tel:[phone] Referring Provider: Maikel Tomas, [address] [place], [address]. tel:[phone] OV - New Patient [facility], [address] [place] [address] [place], [place], [id number], [place] tel:[phone] [facility] Personal history of urinary calculiRetention of urine, unspecifiedCalcu clay of ureterEncounter for other preprocedural examinationCalcu clay of ureterBenign prostatic hyperplasia with lower urinary tract symptomsFrequenc y of micturitionMale erectile dysfunction, unspecifiedCalcu clay of ureterBenign prostatic hyperplasia with lower urinary tract symptomsFrequenc y of micturitionMale erectile dysfunction, unspecified 3 Reynaldo Mcclendon. [address] [place] [address], [id number], [place]. tel:[phone] Referring Provider: Maikel Tomas, [address] [place], [address]. tel:[phone] Family History Family Member Type Diagnosis Age At Onset No Information Payers Payer name Insurance type Covered constitution party ID Authoriza tion(s) Medicare MB [id number] [facility] [id number] Social History Type Description Quantity Date Captured Comments Sex Male Smoking Status No Information Chief Complaint And Reason For Visit No Information Reason For Referral Reason For Referral No Information History Of Present Illness Encounter Date Complaint History Of Prese nt Illness No Information Functional Status Date Functional Assessmen t No Information Instructions Date Instruction Additional Infor mation No Information Assessments Type Assessment Date No Information Patient Care Teams Name Effective Dates (start - stop) Status Members No Information
--- OUTSIDE RECORDS SUMMARY | 2024-10-12 10:39 | XMS_ITS ---
Author Name [facility] Organization [facility] Address [address] [place] [address] Care Team Providers Care Mechanical Product Engineer Name Role Phone MOODYJALEN Primary Care Provider Unavailabl e Insurance Providers: All historical and current Section Date Range: From patient's date of to the date document was created. This section includes the names of all active insurance providers for the patient. Insurance Provider Type of Coverage Plan Name Start of Policy Coverage End of Policy Coverage Group Number Member ID Insurance Provider's Telephone Number Policy Redd's Name Patient's Relationship to Policy Redd [facility] (WNR) MEDICARE ADVANTAGE MCR (WNR) Mar 18, 2018 [id number] KIKI TORREZ PATIENT [facility] (WNR) MEDICARE ADVANTAGE MCR (WNR) Mar 18, 2018 [id number] KIKI TORREZ PATIENT [facility] (WNR) MEDICARE ADVANTAGE [facility] (WNR) Mar 18, 2018 [id number] KIKI TORREZ PATIENT Selected Encounter This section includes the information on record at [place] for the Encounter. Date/Time Encounter Type Encounter Description Reason Pro vider Source May 19, 2024 10:08 AM Outpatient Encounter ADMIN PAT ACTIVTIES (MASNONCT) IHE Encounter Template Text not used by [facility] Plan of Treatment: Future Appointments (+ 6 months) and Future Tests (+/- 45 days) The Plan of Treatment section includes future care activities for the patient from all [facility] treatment[facility]. This section includes future appointments and future orders which are active, pending or scheduled. Active, Pending, and Scheduled Orders This section includes a listing of several types of active, pending, and scheduled orders, including clinic medications orders, diagnostic test orders, procedure orders and consult orders; where the start date of the order is 45 days before the date of the Encounter or 45 days after the date of theEncounter. The data comes from all [place] treatment facilities. Test Date/Time Test Type Test Details Facility Name May 12, 2024 12:00 AM Laboratory - Chemistry Order COMPREHENSIVE METABOLIC PANEL GREEN LI/HEP BLD/PLAS PLASMA SP [facility] May 12, 2024 12:00 AM Laboratory - Chemistry Order LIPID PANEL (STL) GREEN LI/HEP BLD/PLAS PLASMA SP ONCE [facility] May 12, 2024 12:00 AM Laboratory - Chemistry Order CBC BLOOD SP [facility] May 12, 2024 12:00 AM Laboratory - Chemistry Order HGA1C BLOOD SP [facility] May 12, 2024 12:00 AM Laboratory - Chemistry Order TSH W/ REFLEX FT4 (STL) GREEN LI-HEP PLASMA SP [facility] Advance Directives: All historical and current Section Date Range: From patient's date of to the date document was created. This section includes ALL of a patient's completed or amended [place] Advance and Rescinded Directives. The entries below indicate that a directive exists for the patient, but an actual copy is not included with this document. The data comes from all [place] facilities. Date Advance Directives Provider Source Dec 10, 2018 ADVANCE DIRECTIVE ERIK PITTMAN [facility] Encounter Notes: All associated encounter notes This section contains the clinical notes associated to the Encounter. Date/Time Encounter Note(s) Provider Source May 19, 2024 10:08 AM PHARMACY PROGRESS NOTE: LOCAL TITLE: PHARMACY GENERAL ST STANDARD TITLE: PHARMACY PROGRESS NOTE DATE OF NOTE: MAY 19, 2024@10:08 ENTRY DATE: MAY 19, 2024@10:08:42 AUTHOR: BROOK AUSTIN I EXP COSIGNER: URGENCY: STATUS: COMPLETED Pharmacy received chart notes from [facility] that were addressed to Dr. Moody. Faxed information to [facility] for review /es/ BROOK AUSTIN PharmD Community [facility] Pharmacist, Pharmacy Signed: 05/19/2024 10:09 BROOK AUSTIN [facility]
--- OUTSIDE RECORDS SUMMARY | 2024-10-12 10:39 | XMS_ITS | Clinical Summary ---
Author Organization [facility] Address [address] [place] [address] Care Team Providers Care System Development Manager Name Role Phone Katelyn Small PA-C Primary Care Provider [phone] Allergies No known active allergies Medications hydroCHLOROthiaz guanaco 12.5 MG tablet Take 12.5 mg by mouth daily. 1 Active pravastatin 40 MG tablet Take 40 mg by mouth nightly. 1 Active aspirin EC (ECOTRIN) 81 MG tablet Take 81 mg by mouth daily. Active tamsulosin 0.4 MG CapIndications:B enign prostatic hyperplasia with urinary obstruction Take 1 capsule (0.4 mg total) by mouth daily. 30 capsule 6 2 Active Additional Information Patient taking differently: 7 mgOral Daily, Reported on 01/19/2022 HYDROcodone-acet aminophen (NORCO) 5-325 MG tabletIndication s:Acute Pain < 7 Day Supply Take 1-2 tablets by mouth every 4 (four) hours as needed for Pain. Indications: Acute Pain < 7 Day Supply For Moderate Pain 30 tablet 2 Active Additional Information Patient not taking.Reported on 04/05/2022 apixaban (ELIQUIS) 5 MG tablet starter pack Take 2 tablets (10 mg total) by mouth 2 (two) times daily for 7 days, then take 1 tablet (5 mg total) by mouth 2 (two) times daily. 74 tablet 5 Active Active Problems Problem Noted Date Diagnosed Date Nephrolithiasis 12/11/2021 Immunizations Immunization Administration Dates Next Due Fluzone High Dose - >Age 65 (Prefilled Syringe) 02/01/2022 Family History Medical History Relation Comments No Known Problems Father No Known Problems Maternal Aunt No Known Problems Maternal Grandfather No Known Problems Maternal Grandmother No Known Problems Maternal Uncle No Known Problems Mother No Known Problems Paternal Aunt No Known Problems Paternal Grandfather No Known Problems Paternal Grandmother No Known Problems Paternal Uncle Relation Status Comments Father (Age 80s) Maternal Aunt Maternal Grandfather Maternal Grandmother Maternal Uncle Mother (Age 60s) accident Paternal Aunt Paternal Grandfather Paternal Grandmother Paternal Uncle Social History Tobacco Use Types Packs/Day Years Used Date Smoking Tobacco: Never Smokeless Tobacco: Never Tobacco Cessation:Counseling Given: Not Answered Alcohol Use Standard Drinks/Week Comments Yes 0 (1 standard drink = 0.6 oz pur e alcohol) very little PHQ-2 Answer Date Recorded Patient Health Questionnaire-2 Score 0 04/05/2022 Sex and Gender Information Value Date Recorded Sex Assigned at Not on file Legal Sex Male 7:47 PM CDT Gender Identity Not on file Sexual Orientation Not on file Last Filed Vital Signs Vital Sign Reading Time Taken Comments Blood Pressure 131/80 04/25/2024 11:08 PM CABLE FORMER Pulse 78 04/25/2024 11:08 PM CABLE FORMER Temperature 36.3 C (97.4 F) 04/25/2024 11:08 PM CABLE FORMER Respiratory Rate 18 04/25/2024 11:08 PM CABLE FORMER Oxygen Saturation 98% 04/25/2024 11:08 PM CABLE FORMER Inhaled Oxygen Concentration - - Weight 88 kg (194 lb) 04/25/2024 5:52 PM CABLE FORMER Height 177.8 cm (5' 10) 04/25/2024 5:52 PM CABLE FORMER Body Mass Index 27.84 04/25/2024 5:52 PM CABLE FORMER Plan of Treatment Health Maintenance Due Date Last Done Comments Colorectal Cancer Screening Colonoscopy (10 Years) 1948 Hepatitis C 1966 Annual Medicare Wellness Visit 2013 COVID-19 Vaccine (3 - 2023-2 5 season) 2023 07/11/2020, 06/20/2020 RSV Immunization or 60+ Years (1 - 1-dose 75+ series) 11/28/2023 DTaP, Tdap and Td Vaccines ( 2 - Td or Tdap) 06/06/2028 06/06/2018 Zoster Vaccines Completed 07/07/2019, 12/08/2018 Pneumococcal Vaccine: 50+ Years Completed 12/17/2023, 11/14/2021 Meningococcal B Vaccine Aged Out No l onger eligible based on patient's age to complete this topic Meningococcal Vaccine Aged Out No tonie nathaly eligible based on patient's age to complete this topic RSV Immunizations Under 20 Months Aged Out No longer eligible b ased on patient's age to complete this topic Medical Devices Implanted Type Area Mixer Machine Feeder Device Identifier Shelf Expiration Date Model / Serial / Lot Stent Bard [place] 6fr X 24cm - [id number] Implanted:Qty : 1 on 09/02/2020 by Irwin Hanley MD at [facility] Stent Right: Ureter [employer] [id number] 08/07/2023 [id number] / / [id number] Description:RIGHT STENT Stent Ureteral [place] Sci Contour 6fr X 26cm - [id number] Implanted:Qty : 1 on 01/19/2022 by Irwin Hanley MD at [facility] Stent Left: Ureter [employer] [id number] 11/10/2024 [id number] / / [id number] Insurance Advance Directives * Full Code (Latest Code Status on File) Date Activated Date Inactivated Comments 09/02/2020 2:35 PM 09/02/2020 5:41 PM Care Teams System Development Manager Relationship Specialty Start Date End Date Katelyn Small PA-C [address] [place] [address] [address] [place] [address] PCP - General PHYSICIAN CADMIUM BURNER 01/12/22
--- OUTSIDE RECORDS SUMMARY | 2024-10-12 10:39 | XMS_ITS | Continuity of Care Document ---
Author Organization [facility] Address [address] [place] [address] [place] [address] Phone Care Team Providers Care Delivery Crew Worker Name Role Phone [facility] [place] Unavailable U navailable Procedures Procedure Date Cystoureth/ureter &/pyeloscpy; Cystourethroscopy W/insrt Sten Disp Flex Scope ASC Pt No Events ASC Pt Surface Mount Technology Operator Advance Directives Directive Yes / No Effective Date File Name No Information Encounters Encounter Description Practice Location Reason(s) For Visit Diagnoses Date Provider Providers Copied on Encounter [facility], [address] [place], [place] [address], [place], [place], [id number], [place] tel:[phone] [address] [facility] No Information Surgery [facility]. [address] [place] [address], [id number] , [place]. tel:[phone] Referring Provider: Hakan Jacobs, [address] [place] [address], [id number] . tel:[phone] Family History Family Member Type Diagnosis Age At Onset No Information Payers Payer name Insurance type Covered alliance party ID Authoriza tion(s) Medicare MB [id number] BCBS BL [id number] Social History Type Description Quantity Date Captured [...]
--- OUTSIDE RECORDS SUMMARY | 2024-10-12 10:39 | XMS_ITS | Encounter Summary ---
Author Name [facility] [place] Organization [facility] [place] Address [address] [place] [address] Care Team Providers Care Teaching Young Name Role Phone JALEN THOMPSON Primary Care Provider Unavailabl e Insurance Providers: [...] Redd's Name Patient's Relationship to Policy Redd [facility] MEDICARE ADVANTAGE MCR ([facility]) Mar 18, 2018 [id number] KIKI TORREZ PATIENT [facility] (WNR) MEDICARE ADVANTAGE MCR (R) Mar 18, 2018 [id number] KIKI TORREZ PATIENT [facility] (WNR) MEDICARE ADVANTAGE MCR (WNR) Mar 18, 2018 [id number] KIKI TORREZ PATIENT Selected Encounter This section includes the information on record at [place] for the Encounter. Date/Time Encounter Type Encounter Description Reason Pro vider Source May 19, 2024 09:26 AM Outpatient Encounter PRIMARY CARE/MEDICINE IHE Encounter Template Text not used by [place] Plan of Treatment: Future Appointments (+ 6 [...] of theEncounter. The data comes from all [facility] facilities. Test Date/Time Test Type Test Details Facility Name May 12, 2024 12:00 AM Laboratory - Chemistry Order COMPREHENSIVE METABOLIC PANEL GREEN LI/HEP BLD/PLAS PLASMA SP [facility] May 12, 2024 12:00 AM Laboratory - Chemistry Order LIPID PANEL (STL) GREEN LI/HEP BLD/PLAS PLASMA SP ONCE [facility] May 12, 2024 12:00 AM Laboratory - Chemistry Order CBC BLOOD SP [facility] May 12, 2024 12:00 AM Laboratory - Chemistry Order HGA1C BLOOD SP [facility] May 12, 2024 12:00 AM Laboratory - Chemistry Order TSH W/ REFLEX FT4 (STL) GREEN LI-HEP PLASMA SP [facility] Social History: Smoking Status (Most current) and Tobacco Use (All prior to encounter date) This section includes the most current, and the historical, smoking and tobacco- related health factors from the [place] facility where the Encounter took place. Current Smoking Status This section includes the most current smoking, or tobacco-related health factor, from the [place] facility where the Encounter took place. Date/Time Current Smoking Status Comment Facil ity Jan 30, 2024 02:00 PM VA-TOBACCO NEVER U SED CIGARETTES [facility] Tobacco Use History This section includes a history of the smoking, or tobacco-related health factors, that were collected on or before the date of the Encounter. The data comes from the [place] facility where the Encounter took place. Date/Time Smoking Status/Tobacco Use Comment F acility Jan 30, 2024 02:00 PM VA-TOBACCO NEVER U SED OTHER TYPE [facility] Jan 31, 2023 03:30 PM VA-TOBACCO NEVER USED [facility] Nov 14, 2021 02:00 PM VA-TOBACCO FORMER USER [facility] Nov 14, 2021 02:00 PM VA-TOBACCO QUIT [address] [facility] Nov 01, 2020 11:00 AM VA-TOBACCO NEVER USED [facility] May 29, 2018 08:55 AM VA-TOBACCO NEVER USED . [facility] Advance Directives: All historical and current Section Date Range: From patient's date of to the date document was created. This section includes ALL of a patient's completed or amended [place] Advance and Rescinded Directives. The entries below indicate that a directive exists for the patient, but an actual copy is not included with this document. The data comes from all [place] facilities. Date Advance Directives Provider Source Dec 10, 2018 ADVANCE DIRECTIVE ERIK PITTMAN . [facility] Encounter Notes: All associated encounter notes This section contains the clinical notes associated to the Encounter. Date/Time Encounter Note(s) Provider Source May 19, 2024 09:26 AM ADMINISTRATIVE NOT E: LOCAL TITLE: ADMINISTRATIVE STL STANDARD TITLE: ADMINISTRATIVE NOTE DATE OF NOTE: MAY 19, 2024@09:26 ENTRY DATE: MAY 19, 2024@09:26:55 AUTHOR: ANDREA CESAR COSIGNER: URGENCY: STATUS: COMPLETED Received office notes, datge of service 04-28-24, from [facility], telephone #[phone], FAX #[phone]. Celi De La Fuente PA-C Mr. Deluna was diagnosed with left lower extremity DVT 04-25-2024, pas prescribed Eliquis. Swelling and pain resolved. also reported he had blood clot 20 years ago, and he thinks he was tested for clotting disorders but everything was negative. He denied any cough, chest pain or shortness of breath. Never smoker. Protein S deficiency history. Provider Sudhakar advised he will need to be on anticoagulation the rest of his life as this is the 2nd DVT that he has experienced, and he was taking aspirine when this occurred. Lab results, dated: 04-25-2024 Sodium..........144 Potassium.......3.6 Chloride........104 Calcium.........9.3 D-Dimer.........1,199 Hemoglobin......16.2 Hematocrit......47.8 Platelets.......217 BUN.............31 creatinine......1.24 GFR.............61 /es/ ANDREA CESAR REGISTERED NURSE Signed: 05/19/2024 09:39 Receipt Acknowledged By: 05/19/2024 09:46 /es/ ANDREA RUSH MD [facility]
--- OUTSIDE RECORDS SUMMARY | 2024-10-12 10:40 | XMS_ITS ---
Author Name [facility] [facility] [place] [facility] [place] Address [address] [place] [address] Care Team Providers Care Proof Machine Operator Name Role Phone JALEN THOMPSON Primary Care [...] Redd's Name Patient's Relationship to Policy Redd [facility] (R) MEDICARE ADVANTAGE MCR ([facility]) Mar 18, 2018 [id number] KIKI TORREZ PATIENT [facility] (WNR) MEDICARE ADVANTAGE MCR (R) Mar 18, 2018 [id number] KIKI TORREZ PATIENT [facility] (WNR) MEDICARE ADVANTAGE [facility] (WNR) Mar 18, 2018 [id number] KIKI TORREZ PATIENT Selected Encounter This section includes the information on record at [place] for the Encounter. Date/Time Encounter Type Encounter Description Reason Provider Source May 19, 2024 10:32 AM [facility] OL DIG ASSMT&MGMT 11-20 CLINICAL PHARMACY ICD-10-CM Z86.718 Personal history of other venous thrombosis and embolism CHRISTY BELLE Encounter Template Text not used by [place] Assessments - Encounter Diagnoses This section includes the primary and secondary diagnoses documented for the Encounter. Date/Time Primary/Secondary Diagnosis Diagnosis Name Provider Source May 19, 2024 10:41 AM PRIMARY Personal history of other venous thrombosis and embolism CHRISTY BELLE [facility] Plan of Treatment: Future Appointments (+ 6 months) and Future Tests (+/- 45 days) The Plan of Treatment section includes future care activities for the patient from all [place] treatmentfacilities. This section includes future appointments and [...] of theEncounter. The data comes from all [place] treatment facilities. Test Date/Time Test Type Test Details Facility Name May 12, 2024 12:00 AM Laboratory - Chemistry Order COMPREHENSIVE METABOLIC PANEL GREEN LI/HEP BLD/PLAS PLASMA SP [facility] May 12, 2024 12:00 AM Laboratory - Chemistry Order LIPID PANEL (STL) GREEN LI/HEP BLD/PLAS PLASMA SP ONCE [facility] May 12, 2024 12:00 AM Laboratory - Chemistry Order CBC BLOOD SP [facility] May 12, 2024 12:00 AM Laboratory - Chemistry Order HGA1C BLOOD SP [facility] May 12, 2024 12:00 AM Laboratory - Chemistry Order TSH W/ REFLEX FT4 (STL) GREEN LI-HEP PLASMA SP [facility] Social History: Smoking Status (Most current) and Tobacco Use (All prior to encounter date) This section includes the most current, and the historical, smoking and tobacco- related health factors from the [place] facility where the Encounter took place. Current Smoking Status This section includes the most current smoking, or tobacco-related health factor, from the [place] facility where the Encounter took place. Date/Time Current Smoking Status Comment Facil ity May 27, 2018 02:04 PM [place]-TOBACCO NEVER USED [facility] Advance Directives: All historical and current Section Date Range: From patient's date of to the date document was created. This section includes ALL of a patient's completed or amended [place] Advance and Rescinded Directives. The entries below indicate that a directive exists for the patient, but an actual copy is not included with this document. The data comes from all [place] facilities. Date Advance Directives Provider Source Dec 10, 2018 ADVANCE DIRECTIVE ERIK PITTMAN [facility] Encounter Notes: All associated encounter notes This section contains the clinical notes associated to the Encounter. Date/Time Encounter Note(s) Provider Source May 19, 2024 10:32 AM PHARMACY CONSULT: LOCAL TITLE: PHARMACY PRIOR APPROVAL CONSULT ST STANDARD TITLE: PHARMACY CONSULT DATE OF NOTE: MAY 19, 2024@10:32 ENTRY DATE: MAY 19, 2024@10:32:54 AUTHOR: CHRISTY BELLE EXP COSIGNER: URGENCY: STATUS: COMPLETED The medical record has been reviewed with regard to this prior authorization drug request. Medication requested: APIXABAN 5MG TAB Medication indication: VTE Medical history relevant to this request: Pt w/ remote h/o DVT, presented to outside ER 04/25, dx w/ Acute DVT in the left posterior tibial vein. (per JLV), and started on apixaban. Also w/ h/o Protein S deficiency. Pt now wishing to receive from [place]. NO CIs to use noted, labs indicate safe use. Pt will be enrolled in the anticoag clinic for education and monitoring. The request is approved: apixaban 5mg BID, #60, RF - No formulary-preferred alternative TIME REVIEWING CHART:12. (minutes) Hemoglobin done on the outside VALUE: 16.2 Date: April 25, 2024 Location: [facility] HCT done on the outside VALUE: 47.8 Date: April 25, 2024 Location: [facility] Creatinine (serum) done on the outside VALUE: 1.28 Date: April 25, 2024 Location: [facility] Platelets done on the outside VALUE: 217 Date: April 25, 2024 Location: [facility] /[facility]/ CHRISTY BELLE, PHARM.D, [facility] CLINICAL PHARMACIST Signed: 05/19/2024 10:41 CHRISTY BELLE [facility]
--- OUTSIDE RECORDS SUMMARY | 2024-10-12 10:40 | XMS_ITS | Continuity of Care Document ---
Author Organization [facility] Address [address] [place] [address] Phone Care Team Providers Care Sap Administrator Name Role Phone Jamil Rojo APN, APN Unavailable Unavailab le Allergies, Adverse Reactions, Alerts Substance Reaction Status Criticality No Known Allergies Active No Inform ation Medications Medication Instructions Dosage Effective Dates (start - stop) Status Comments Glyxambi 25 mg-5 mg tablet take 1 tablet by oral route every day in the morning 1.00 tablet - Active Lyrica 300 mg capsule take 1 capsule by oral route 2 times every day 300 MG - Active Toujeo Max U-300 SoloStar 300 unit/mL (3 mL) subcutaneous insulin pen inject by subcutaneous route as per insulin protocol 0.00 - Active aspirin 81 mg tablet,delayed release take 1 tablet by oral route every day 81 MG - Active omeprazole 20 mg capsule,delayed release take 1 capsule by oral route every day before a meal 20 MG - Active atorvastatin 40 mg tablet take 1 tablet by oral route every day 40 MG - Active lisinopril 5 mg tablet take 1 tablet by oral route every day 5 MG - Active magnesium oxide 400 mg (241.3 mg magnesium) tablet take 1 tablet by oral route every day - Active multivitamin tablet take 1 tablet by oral route every day with food - Active Bactrim DS 800 mg-160 mg tablet take 1 tablet by oral route on Saturday, Saturday, Saturday - Active acyclovir 400 mg tablet take 1 tablet by oral route bid - Active Brukinsa 80 mg capsule take 2 capsule by oral route 2 times every day 160 MG - Active Edex 20 mcg intracavernosal kit inject (20MCG) by intra-cavernosal route once 10-30 minutes before intended intercourse as needed 20 MCG - Active Bydureon BCise 2 mg/0.85 mL subcutaneous auto-injector inject (2MG) by subcutaneous route every 7 days in the abdomen, thighs, or outer area of upper arm rotating injectionsites - Active metoprolol succinate ER 25 mg tablet,extended release 24 hr take 1 tablet by oral route every day 25 MG - No Longer Active dose increase metoprolol succinate ER 25 mg tablet,extended release 24 hr take 1 tablet by oral route every day 25 MG No Longer Active dose increase Toujeo Max U-300 SoloStar 300 unit/mL (3 mL) subcutaneous insulin pen inject by subcutaneous route as per insulin protocol 0.00 - No Longer Active Lyrica 300 mg capsule take 1 capsule by oral route 2 times every day 300 MG - No Longer Active acyclovir 400 mg tablet take 1 tablet by oral route bid - No Longer Active multivitamin tablet take 1 tablet by oral route every day with food No Longer Active magnesium oxide 400 mg (241.3 mg magnesium) tablet take 1 tablet by oral route every day No Longer Active lisinopril 5 mg tablet take 1 tablet by oral route every day 5 MG - No Longer Active omeprazole 20 mg capsule,delayed release take 1 capsule by oral route every day before a meal 20 MG - No Longer Active GLYXAMBI (unknown strength) take 1 (5mg) tablet by oral route every day in the morning Not Available - No Longer Active aspirin 81 mg tablet,delayed release take 1 tablet by oral route every day 81 MG - No Longer Active atorvastatin 40 mg tablet take 1 tablet by oral route every day 40 MG - No Longer Active Bactrim DS 800 mg-160 mg tablet take 1 tablet by oral route on Saturday, Saturday, Saturday - No Longer Active Brukinsa 80 mg capsule take 2 capsule by oral route 2 times every day 160 MG - No Longer Active Procedures Procedure Date Office Visit Level 4 EM Visit Complexity Add-On ACP Disc And Doc, No Surrogate Documente d EKG With Interp And Report Office Visit Level 4 ACP Disc And Doc, Surrogate Documented S ep Office Visit Level 4 ACP Disc And Doc, No Surrogate Documente d EM Visit Complexity Add-On Holter Monitor, Up To 48 Hrs Holter Monitor, Up To 48 Hrs Office Visit Level 4 ACP Disc And Doc, Surrogate Documented S ep- Office Visit Level 4 ACP Disc And Doc, No Surrogate Documente d Echo, 2D Complete Office Visit Level 4 ACP Disc And Doc, Surrogate Documented N ov EKG With Interp And Report Office Visit Level 4 ACP Disc And Doc, Surrogate Documented S ep Office Visit Level 4 ACP Disc And Doc, No Surrogate Documente d Office Visit Level 4 EKG With Interp And Report ACP Disc And Doc, No Surrogate Documente d Telephone Visit 1 EKG With Interp And Report Office Visit Level 4 ACP Disc And Doc, No Surrogate Documente d Office Visit Level 4 ACP Disc And Doc, No Surrogate Documente d EKG With Interp And Report Office Visit Level 4 EKG With Interp And Report Office Visit Level 4 Office Visit Level 4 EKG With Interp And Report Office Visit Level 3 Nuc-Perf Scan, Single, W/EF & WM 2016 NUC-Cardiolite/Per Dose IO-Stress Supervision, Office 7 Stress Tracing Only IO-Stress Intepretation, Office 017 Office Visit Level 4 Office Visit Level 4 Office Visit Level 4 Holter Monitor, Up To 24 Hrs Office Visit Level 4 Holter Monitor, Up To 24 Hrs Echo, 2D Complete EKG With Interp And Report Office Visit Level 4 Office Visit Level 4 EKG With Interp And Report EKG With Interp And Report Office Visit Level 4 Office Visit Level 4 Office Visit Level 4 Out Pt Hosp Consult 3 Left Heart Cath With Cors W/WO LV Advance Directives Directive Yes / No Effective Date File Name Other Directive No 09/11/2013 N/A WARNING:The information contained in this section is historical and is provided for information only and does not constitute a legal document or any assurance that the information is still accurate. Please verify the information with the martinez of the legal document before using it for clinical purposes. Encounters Encounter Description Practice Location Reason(s) For Visit Diagnoses Date Provider Providers Copied on Encounter Office Visit Level 4 [facility], [address], [place], [address], [place] tel:[phone] Mcfaddin CVM Cardiovascul ar Review (chief complaint)CA D (chief complaint)Di abetes Mellitus (chief complaint)Hy perlipidemia (chief complaint) Essential (primary) hypertension MelanomaType 2 diabetes mellitus without complication sMixed hyperlipidem iaLymphoma, unspecified body region, unspecified lymphoma typeObesity (BMI 30-39.9)Arianne riosclerosis of [place] coronary artery w/o angina pectorisOthe r male erectile dysfunction 5 Darrel Negron. [facility] , [address], [place], [place], [address], [place]. tel:[phone] Referring Provider: Jamil Rojo APN, [facility] [address], [place], [address]. tel:[phone] [facility], [address], [place], [address], [place] tel:[phone] Mcfaddin CVM No Information 4 Jamison Disla. [facility] , [address], [place], [place], [address], [place]. tel:[phone] Office Visit Level 4 [facility], [address], [place], [address], [place] tel:[phone] Mcfaddin CVM CAD (chief complaint)Hy pertension (chief complaint)Fo llow Up Visit (chief complaint)Ca rdiovascular Review (chief complaint) Essential (primary) hypertension MelanomaType 2 diabetes mellitus without complication sMixed hyperlipidem iaLymphoma, unspecified body region, unspecified lymphoma typeNonocclu sive coronary atherosclero sis of [place] coronary arteryObesit y (BMI 30-39.9) 4 Jamison Disla. [facility] , [address], [place], [place], [address], [place]. tel:[phone] Referring Provider: Naif Swift MD, [facility] [address], [place], [address]. tel:[phone] Office Visit Level 4 [facility], [address], [place], [address], [place] tel:[phone] Chinmay CVM Cardiovascul ar Review (chief complaint)CA D (chief complaint)Di abetes Mellitus (chief complaint)Hy pertension (chief complaint) Arterioscler osis of [place] coronary artery w/o angina pectorisEsse ntial (primary) hypertension Type 2 diabetes mellitus without complication sMelanomaOth er obesity 4 Darrel Negron. [facility] , [address], [place], [place], [id number], [place]. tel:[phone] Referring Provider: Jamil Rojo APN, [facility] [address], [place], [address]. tel:[phone] [facility], [address], [place], [address], [place] tel:[phone] DX Mcfaddin CVM Ventricular premature depolarizati on 4 Jamison Disla. [facility] , [address], [place], [place], [address], [place]. tel:[phone] Referring Provider: Naif Swift MD, [facility] [address], [place], [address]. tel:[phone] [facility], [address], [place], [address], [place] tel:[phone] Chinmay CVM Sinus tachycardia 3 Jamison Disla. [facility], [address], [place], [place], [address], [place]. tel:[phone] [facility], [address], [place], [address], [place] tel:[phone] DX Mcfaddin CVM Tachycardia, unspecified 3 Huber Burgess. [facility], [address], [place], [place], [address], [place]. tel:[phone] Referring Provider: Jamil Rojo APN, [facility] [address], [place], [address]. tel:[phone] Office Visit Level 4 [facility], [address], [place], [address], [place] tel:[phone] Chinmay CVM Cardiovascul ar Review (chief complaint)CA D (chief complaint)Hy pertension (chief complaint)Di abetes Mellitus (chief complaint) Essential (primary) hypertension Type 2 diabetes mellitus without complication sMelanomaArt eriosclerosi s of [place] coronary artery w/o angina pectorisOthe r obesitySinus tachycardia 3 Darrel Negron. [facility], [address], [place], [place], [address], [place]. tel:[phone] Referring Provider: Jamil Rojo APN, [facility] [address], [place], [address]. tel:[phone] Office Visit Level 4 [facility], [address], [place], [address], [place] tel:[phone] Chinmay CVM Dyspnea (chief complaint) Essential (primary) hypertension Angina pectorisType 2 diabetes mellitus without complication sMelanoma 3 Jamison Disla. [facility], [address], [place], [place], [address], [place]. tel:[phone] Referring Provider: Naif Swift MD, [facility] [address], [place], [address]. tel:[phone] [facility], [address], [place], [address], [place] tel:[phone] DX Mcfaddin CVM Shortness of breathTachyc ardia, unspecified 2 Huber WEISS Aditya. [facility] , [address], [place], [place], [address], [place]. tel:[phone] Referring Provider: Kelley Rodriguez APN, [facility] [address], [place], [address]. tel:[phone] Office Visit Level 4 [facility], [address], [place], [address], [place] tel:[phone] Chinmay CVM Hypertension (chief complaint)Hy perlipidemia (chief complaint)Dy spnea (chief complaint)Ca rdiovascular Review (chief complaint) Essential (primary) hypertension Type 2 diabetes mellitus with other specified complication Mixed hyperlipidem iaObesity, Class I, BMI 30-34.9SOB (shortness of breath) on exertionNon- occlusive coronary artery diseaseLymph ad, unspecified body region, unspecified lymphoma type 2 Michael Benson. [facility] , [address], [place], [place], [address], [place]. tel:[phone] Referring Provider: Kelley Rodriguez APN, [facility] [address], [place], [address]. tel:[phone] Office Visit Level 4 [facility], [address], [place], [address], [place] tel:[phone] Chinmay CVM Cardiovascul ar Review (chief complaint)CA D (chief complaint)Hy perlipidemia (chief complaint)Hy pertension (chief complaint)Di abetes Mellitus (chief complaint) Athscl heart disease of [place] coronary artery w/o ang pctrsOther ill-defined heart diseasesEsse ntial (primary) hypertension Type 2 diabetes mellitus with other specified complication Mixed hyperlipidem iaOther obesity Nov- 2 Darrel Marley [facility], [address], [place], [place], [address], [place]. tel:[phone] Referring Provider: Jamil Rojo APN, [facility] [address], [place], [address]. tel:[phone] Office Visit Level 4 [facility], [address], [place], [address], [place] tel:[phone] Mcfaddin CVM Cardiovascul ar Review (chief complaint)CA D (chief complaint)Hy pertension (chief complaint)Hy pertension (chief complaint)Di abetes Mellitus (chief complaint) Athscl heart disease of [place] coronary artery w/o ang pctrsOther ill-defined heart diseasesEsse ntial (primary) hypertension Type 2 diabetes mellitus with other specified complication Mixed hyperlipidem iaOther obesity Sep- 0 1 Darrel Marley [facility], [address], [place], [place], [address], [place]. tel:[phone] Referring Provider: Jamil Rojo APN, [facility] [address], [place], [address]. tel:[phone] Office Visit Level 4 [facility], [address], [place], [address], [place] tel:[phone] Mcfaddin CVM Cardiovascul ar Review (chief complaint) Athscl heart disease of [place] coronary artery w/o ang pctrsOther ill-defined heart diseasesEsse ntial (primary) hypertension Type 2 diabetes mellitus with other specified complication Mixed hyperlipidem iaOther obesity Nov 0 0 Darrel Marley [facility], [address], [place], [place], [address], [place]. tel:[phone] Referring Provider: Jamil Rojo APN, [facility] [address], [place], [address]. tel:[phone] Telephone Visit 1 [facility], [address], [place], [address], [place] tel:[phone] Mcfaddin CVM Cardiovascul ar Review (chief complaint)CA D (chief complaint)Di abetes Mellitus (chief complaint)Hy perlipidemia (chief complaint)Hy pertension (chief complaint) Athscl heart disease of [place] coronary artery w/o ang pctrsOther ill-defined heart diseasesEsse ntial (primary) hypertension Type 2 diabetes mellitus with other specified complication Mixed hyperlipidem iaOther obesity Jun- 0 Darrel Negron. [facility], [address], [place], [place], [address], [place]. tel:[phone] Referring Provider: Jamil Rojo APN, [facility] [address], [place], [address]. tel:[phone] [facility], [address], [place], [address], [place] tel:[phone] Mcfaddin CVM Tachycardia Dec- 0201 9 Jamison Disla. [facility], [address], [place], [place], [address], [place]. tel:[phone] Office Visit Level 4 [facility], [address], [place], [address], [place] tel:[phone] Chinmay CVM Cardiovascul ar Review (chief complaint) Type 2 diabetes mellitus with other specified complication Essential (primary) hypertension Combined hyperlipidem iaEncounter for preprocedura l cardiovascul ar examination Dec-0 8201 9 Jamison Disla. [facility], [address], [place], [place], [address], [place]. tel:[phone] Referring Provider: Naif Swift MD, [facility] [address], [place], [address]. tel:[phone] Office Visit Level 4 [facility], [address], [place], [address], [place] tel:[phone] Chinmay CVM Cardiovascul ar Review (chief complaint)CA D (chief complaint)Hy pertension (chief complaint)Hy pertension (chief complaint)Di abetes Mellitus (chief complaint) Athscl heart disease of [place] coronary artery w/o ang pctrsOther ill-defined heart diseasesEsse ntial (primary) hypertension Type 2 diabetes mellitus with other specified complication Mixed hyperlipidem iaOther obesity 0201 9 Darrel Negron. [facility], [address], [place], [place], [address], [place]. tel:[phone] Referring Provider: Jamil Rojo APN, [facility] [address], [place], [address]. tel:[phone] Office Visit Level 4 [facility], [address], [place], [address], [place] tel:[phone] Chinmay CVM Cardiovascul ar Review (chief complaint)CA D (chief complaint)Hy pertension (chief complaint)Hy perlipidemia (chief complaint)Di abetes Mellitus (chief complaint) Athscl heart disease of [place] coronary artery w/o ang pctrsOther ill-defined heart diseasesEsse ntial (primary) hypertension Other hyperlipidem iaOverweight Type 2 diabetes mellitus with other specified complication 8 Darrel Negron. [facility], [address], [place], [place], [address], [place]. tel:[phone] Referring Provider: Jamil Rojo APN, [facility] [address], [place], [address]. tel:[phone] Office Visit Level 4 [facility], [address], [place], [address], [place] tel:[phone] Mcfaddin CVM Cardiovascul ar Review (chief complaint)CA D (chief complaint)Hy pertension (chief complaint)Hy pertension (chief complaint)Di abetes Mellitus (chief complaint) Athscl heart disease of [place] coronary artery w/o ang pctrsOther hyperlipidem iaOverweight Type 2 diabetes mellitus with other specified complication Essential hypertension Other ill-defined heart diseases Apr-0 8 Darrel Negron. [facility], [address], [place], [place], [address], [place]. tel:[phone] Referring Provider: Jamil Rojo APN, [facility] [address], [place], [address]. tel:[phone] Office Visit Level 4 [facility], [address], [place], [address], [place] tel:[phone] Chinmay CVM general (chief complaint)Hy pertension (chief complaint)Di abetes Mellitus (chief complaint)Hy perlipidemia (chief complaint) Atherosclero tic heart disease of [place] coronary artery without angina pectorisOthe r hyperlipidem iaType 2 diabetes mellitus with other specified complication OverweightOt her hypotensionP neumonia due to infectious organism, unspecified laterality, unspecified part of lung Sep-2 7 Darrel Negron. [facility] , [address], [place], [place], [address], [place]. tel:[phone] Referring Provider: Jamil Rojo APN, [facility] [address], [place], [address]. tel:[phone] Office Visit Level 3 [facility], [address], [place], [address], [place] tel:[phone] Chinmay CVM general (chief complaint) Arterioscler osis of [place] coronary artery w/ other form of angina pectorisOthe r hyperlipidem iaEssential (primary) hypertension 7 Jamison Disla. [facility], [address], [place], [place], [address], [place]. tel:[phone] Referring Provider: Naif Swift MD, [facility] [address], [place], [address]. tel:[phone] [facility], [address], [place], [address], [place] tel:[phone] DX Mcfaddin CVM No Information 7 Jamison Disla. [facility] , [address], [place], [place], [address], [place]. tel:[phone] Referring Provider: Naif Swift MD, [facility] [address], [place], [address]. tel:[phone] [facility], [address], [place], [address], [place] tel:[phone] Mcfaddin CVM Arterioscler osis of [place] coronary artery w/ other form of angina pectoris 7 Jamison Disla. [facility] , [address], [place], [place], [address], [place]. tel:[phone] Office Visit Level 4 [facility], [address], [place], [address], [place] tel:[phone] Chinmay CVM Chest Pain (chief complaint)Dy spnea (chief complaint)ge neral (chief complaint) Arterioscler osis of [place] coronary artery w/ other form of angina pectorisEsse ntial (primary) hypertension Type 2 diabetes mellitus with other specified complication Ventricular premature depolarizati onHyperlipid emia, unspecified 6 Darrel Negron. [facility], [address], [place], [place], [address], [place]. tel:[phone] Referring Provider: Jamil Rojo APN, [facility] [address], [place], [address]. tel:[phone] Office Visit Level 4 [facility], [address], [place], [address], [place] tel:[phone] Mcfaddin CVM general (chief complaint) Atherosclero tic heart disease of [place] coronary artery without angina pectorisEsse ntial (primary) hypertension Other hyperlipidem iaVentricula r premature depolarizati onType 2 diabetes mellitus with other specified complication Overweight 6 Darrel Negron. [facility], [address], [place], [place], [address], [place]. tel:[phone] Referring Provider: Jamil Rojo APN, [facility] [address], [place], [address]. tel:[phone] Office Visit Level 4 [facility], [address], [place], [address], [place] tel:[phone] Mcfaddin CVM general (chief complaint)Dy spnea (chief complaint) Ventricular premature depolarizati onAtheroscle rotic heart disease of [place] coronary artery without angina pectorisDysp brad, unspecifiedE ssential (primary) hypertension Other hyperlipidem ia 5 Darrel Negron. [facility], [address], [place], [place], [address], [place]. tel:[phone] Referring Provider: Jamil Rojo APN, [facility] [address], [place], [address]. tel:[phone] [facility], [address], [place], [address], [place] tel:[phone] DX Chinmay CVM No Information 5 Taye Jerez. [facility], [address], [place], [place], [address], [place]. tel:[phone] Referring Provider: Naif Swift MD, [facility] [address], [place], [address]. tel:[phone] Office Visit Level 4 [facility], [address], [place], [address], [place] tel:[phone] Mcfaddin CVM CAD, Tribe VesselAdult onset diabetesPVCH [place], Essential/Be nign Jamison Disla. [facility], [address], [place], [place], [address], [place]. tel:[phone] Referring Provider: Naif Swift MD, [facility] [address], [place], [address]. tel:[phone] [facility], [address], [place], [address], [place] tel:[phone] [id number] DX Mcfaddin CVM No Information 5 [facility]ison Disla. [facility], [address], [place], [place], [id number], [place]. tel:[phone] Referring Provider: Naif Swift MD, [facility] [address], [place], [address]. tel:[phone] [facility], [address], [place], [address], [place] tel:[phone] DX Mcfaddin CVM No Information 5 No Information Referring Provider: Naif Swift MD, [facility] [address], [place], [address]. tel:[phone] Office Visit Level 4 [facility], [address], [place], [address], [place] tel:[phone] [place] CVM CAD, Tribe VesselHTN, Essential/Be nignHx, family, ischemic heart diseaseFORMERLY [facility] 5 [facility]la[facility], [address], [place], [place], [id number], [place]. tel:[phone] Referring Provider: Naif Swift MD, [facility] [address], [place], [address]. tel:[phone] [facility], [address], [place], [address], [place] tel:[phone] Mc[facility]addin CVM general (chief complaint) CAD, Tribe VesselDyspne a On ExertionHTN, Essential/Be nignDyslipid aemiaAdult onset diabetes 4 [facility]la. [facility], [address], [place], [place], [id number], [place]. tel:[phone] Referring Provider: Naif Swift MD, [facility] [address], [place], [address]. tel:[phone] [facility], [address], [place], [address], [place] tel:[phone] Mcfaddin CVM CAD, Tribe VesselHx, family, ischemic heart diseaseHTN, Essential/Be nign 3 Jarred Curtis. [facility], [address] [place], [address]. tel:[phone] Referring Provider: Naif Swift MD, [facility] [address], [place], [address]. tel:[phone] [facility], [address], [place], [address], [place] tel:[phone] Chin[place] CVM CAD, Tribe VesselHx, family, ischemic heart diseaseDyspn ea On ExertionHTN, Essential/Be nign 2 Jarred Curtis. [facility], [address], [place], [address]. tel:[phone] Referring Provider: Naif Swift MD, [facility] [address], [place], [address]. tel:[phone] [facility], [address], [place], [address], [place] tel:[phone] Mcfaddin CVM Angina Pectoris, UnstableHx, family, ischemic heart diseaseDyspn ea On ExertionCAD, Tribe Vessel Fe 2 [facility]ison Disla. [facility], [address], [place], [place], [id number], [place]. tel:[phone] Referring Provider: Naif Swift MD, [facility] [address], [place], [address]. tel:[phone] [facility], [address], [place], [address], [place] tel:[phone] Mcfaddin CVM No Information 1 Jamison Disla. [facility], [address], [place], [place], [id number], [place]. tel:[phone] Referring Provider: Maikel Tomas, [place] [address], [address]. tel:[phone] Family History Family Member Type Diagnosis Age At Onset Father Problem (finding) HI (Cause Of ) Father Problem (finding) Mother Problem (finding) angina Immunizations Vaccine Date Status Comments COVID-19 administered Note: 2 doses ; Source: Source Unspecified Payers Payer name Insurance type Covered republican ID Authorflexa carmineasia(s) Medicare [place] MB [id number] [id number] Social History Type Description Quantity Date Captured Comments Alcohol Use Details No Caffeine Use Details soda 8 oz per day Tobacco Use Status Current non-smoker Smoking Status Never smoker Non-Smoking Tobacco Use Details : No Details Available : No Details Available Sex Male Vital Signs Date / Time: Height Weight BMI Pulse Rate Blood Pressure Temperature Respiratory Rate Body Surface Area Head Circumference Head Circ. Percentile Wt./Leonel. Percentile BMI percentile Pulse Ox Inhaled Ox 8:04 AM 73.00 in 117.480 kg (259.00 lbs) 34.1 7 kg/m eter (2) 96 /min 118/60 mm[Hg] 16 /min 2.46 meter(2) Chief Complaint And Reason For Visit From encounter dated '08/13/2024 08:00'. Cardiovascular Review (chief complaint). Description: He has had no chest discomfort suggestive of ischemia. The patient denies orthopnea, PND, MCKINLEY, or edema. Mr. Jaimes has not had palpitations, syncope or near syncope. He denies claudication. There is no discoloration or ulceration of the lowerextremities. He has had no TIA or stroke-like symptoms. The patient has no symptoms attributable tovalvular heart disease. CAD (chief complaint) Diabetes Mellitus (chief complaint) Hyperlipidemia (chief complaint) Reason For Referral Reason For Referral No Information Plan Of Treatment Date Type Action Status Appointment Hugh Jaimes BOOKED Future Order: Radiology Order Ho lter Monitor 24 Hours (ECG), Appointment on: , Collected on: Ordered Future Order: Radiology Order Ho lter Monitor 24 Hours (ECG), Appointment on: , Collected on: Ordered Future Order: Radiology Order Ec osmar Complete ([place]), Appointment on: , Collected on: Ordered Future Order: Radiology Order Nu dante Guadalupe One Day ([place]), Appointment on: , Collected on: , Sent on: Sent Future Order: Radiology Order Ho lter Monitor 24 Hours (ECG), Appointment on: , Collected on: , Sent on: Sent History Of Present Illness Encounter Date Complaint History Of Prese nt Illness Cardiovascular Review He has had no chest discomfort suggestive of ischemia. The patient denies orthopnea, PND, MCKINLEY, or edema. Mr. Jaimes has not had palpitations, syncope or near syncope. He denies claudication. There is no discoloration or ulceration of the lower extremities. He has had no TIA or stroke-like symptoms. The patient has no symptoms attributable to valvular heart disease. CAD Diabetes Mellitus Hyperlipidemia CAD The patient visi ts the office to be evaluated for coronary artery disease (CAD). The patient is currently on the following: DENIA inhibitor or ARB (lisinopril 5 mg tablet), Aspirin and Other Anti-thrombotics (aspirin 81 mg tablet,delayed release), Beta Jelena Therapy (metoprolol succinate ER 50 mg tablet,extended release 24 hr), Lipid Lowering (atorvastatin 40 mg tablet). Hypertension Comorbid conditi ons include diabetes mellitus. Risk factors include age over age 60, male gender and obesity. Follow Up Visit Cardiovascular Review He has had no chest discomfort suggestive of ischemia. The patient denies orthopnea, PND, MCKINLEY, or edema. Mr. Jaimes has not had palpitations, syncope or near syncope. Cardiovascular Review He has had no chest discomfort suggestive of ischemia. The patient denies orthopnea, PND, MCKINLEY, or edema. Mr. Jaimes has not had palpitations, syncope or near syncope. He denies claudication. There is no discoloration or ulceration of the lower extremities. He has had no TIA or stroke-like symptoms. The patient has no symptoms attributable to valvular heart disease. CAD Diabetes Mellitus Hypertension CAD Hypertension Diabetes Mellitus Cardiovascular Review He has had no chest discomfort suggestive of ischemia. The patient denies orthopnea, PND, MCKINLEY, or edema. Mr. Jaimes has not had palpitations, syncope or near syncope. He denies claudication. There is no discoloration or ulceration of the lower extremities. He has had no TIA or stroke-like symptoms. The patient has no symptoms attributable to valvular heart disease. Dyspnea The patient visi ts the office to be evaluated for dyspnea (shortness of breath). The patient rates the severity of the shortness of breath as moderate. No further information has been recorded on HPI Dyspnea. Associated symptoms include chest pressure. last known Echo (EF 0.65) - 01/29/2022. Hypertension Risk factors inc lude age over age 60, male gender and obesity. Hyperlipidemia Risk factors inc lude age over 50 and obesity. The patient is managing diabetes with oral medication. Positive comorbidity factors include coronary artery disease. Hyperlipidemia management includes statins. Dyspnea The patient is e valuated for dyspnea (shortness of breath). The dyspnea began 3 weeks ago. It occurs every day. This is unchanged overtime. The shortness of breath is aggravated by mild activity such as walking. Relieving factors include rest. Pertinent negatives include chest pressure, dry cough, fatigue, productive cough and substernal chest pain. last known Echo (EF 0.50) - 10/20/2014. Additional information: Decline in physical activity.. Cardiovascular Review He has had no chest discomfort suggestive of ischemia. Mr. Jaimes has MCKINLEY. He denies orthopnea, PND or edema. Mr. Jaimes has not had palpitations, syncope or near syncope. He denies claudication. There is no discoloration or ulceration of the lower extremities. He has had no TIA or stroke-like symptoms. The patient has no symptoms attributable to valvular heart disease. CAD Hyperlipidemia Hypertension Cardiovascular Review He has had no chest discomfort suggestive of ischemia. The patient denies orthopnea, PND, MCKINLEY, or edema. Mr. Jaimes has not had palpitations, syncope or near syncope. He denies claudication. There is no discoloration or ulceration of the lower extremities. He has had no TIA or stroke-like symptoms. The patient has no symptoms attributable to valvular heart disease. Diabetes Mellitus Cardiovascular Review He has had no chest discomfort suggestive of ischemia. The patient denies orthopnea, PND, MCKINLEY, or edema. Mr. Jaimes has not had palpitations, syncope or near syncope. He denies claudication. There is no discoloration or ulceration of the lower extremities. He has had no TIA or stroke-like symptoms. The patient has no symptoms attributable to valvular heart disease. CAD Hypertension Hypertension Diabetes Mellitus Cardiovascular Review He has had no chest discomfort suggestive of ischemia. The patient denies orthopnea, PND, MCKINLEY, or edema. Mr. Jaimes has not had palpitations, syncope or near syncope. He denies claudication. There is no discoloration or ulceration of the lower extremities. He has had no TIA or stroke-like symptoms. The patient has no symptoms attributable to valvular heart disease. CAD Diabetes Mellitus Hyperlipidemia Hypertension Cardiovascular Review He has had no chest discomfort suggestive of ischemia. The patient denies orthopnea, PND, MCKINLEY, or edema. Mr. Jaimes has not had palpitations, syncope or near syncope. He denies claudication. There is no discoloration or ulceration of the lower extremities. He has had no TIA or stroke-like symptoms. The patient has no symptoms attributable to valvular heart disease. Cardiovascular Review He has had no chest discomfort suggestive of ischemia. The patient denies orthopnea, PND, MCKINLEY, or edema. Mr. Jaimes has not had palpitations, syncope or near syncope. He denies claudication. There is no discoloration or ulceration of the lower extremities. He has had no TIA or stroke-like symptoms. The patient has no symptoms attributable to valvular heart disease. CAD Hypertension Hypertension Diabetes Mellitus Cardiovascular Review He has had no chest discomfort suggestive of ischemia. The patient denies orthopnea, PND, MCKINLEY, or edema. Mr. Jaimes has not had palpitations, syncope or near syncope. He denies claudication. There is no discoloration or ulceration of the lower extremities. He has had no TIA or stroke-like symptoms. The patient has no symptoms attributable to valvular heart disease. CAD Hypertension Hyperlipidemia Cardiovascular Review He has had no chest discomfort suggestive of ischemia. The patient denies orthopnea, PND, MCKINLEY, or edema. Mr. Jaimes has not had palpitations, syncope or near syncope. He denies claudication. There is no discoloration or ulceration of the lower extremities. He has had no TIA or stroke-like symptoms. The patient has no symptoms attributable to valvular heart disease. Diabetes Mellitus Cardiovascular Review He has had no chest discomfort suggestive of ischemia. The patient denies orthopnea, PND, MCKINLEY, or edema. Mr. Jaimes has not had palpitations, syncope or near syncope. He denies claudication. There is no discoloration or ulceration of the lower extremities. He has had no TIA or stroke-like symptoms. The patient has no symptoms attributable to valvular heart disease. CAD Hypertension Hypertension Diabetes Mellitus general He has had no ch est discomfort suggestive of ischemia. The patient denies orthopnea, PND, MCKINLEY, or edema. Mr. Jaimes has not had palpitations, syncope or near syncope. He denies claudication. There is no discoloration or ulceration of the lower extremities. He has had no TIA or stroke-like symptoms. The patient has no symptoms attributable to valvular heart disease. Hypertension Diabetes Mellitus Hyperlipidemia general The patient hayde es orthopnea, PND, MCKINLEY, or edema. Chest Pain The patient comp lains of chest discomfort. The pain began 2 weeks ago. It occurs intermittently. The pain varies in duration. The patient rates the pain as mild to moderate. This is acute in nature. The discomfort is located in the parasternal area. The pain does not radiate. The patient describes the pain as aching. He states movement makes it worse. The patient states nothing seems to relieve the pain. It is associated with dyspnea. Dyspnea The patient visi ts the office to be evaluated for dyspnea (shortness of breath). It occurs every day. The dyspnea varies in duration. The patient rates the severity of the shortness of breath as mild to moderate. This is worse since the last visit. The patient's symptoms are consistent. The shortness of breath is aggravated by moderate activity, after the patient climbs 15 stairs. Relieving factors include rest. Associated symptoms include substernal chest pain. Pertinent negatives include fever, hemoptysis and lower extremity edema. last known Echo (EF 0.50) - 10/20/2014. general Mr. Jaimes has not had palpitations, syncope or near syncope. He denies claudication. There is no discoloration or ulceration of the lower extremities. He has had no TIA or stroke-like symptoms. The patient has no symptoms attributable to valvular heart disease. general He has had no ch est discomfort suggestive of ischemia. The patient denies orthopnea, PND, MCKINLEY, or edema. Mr. Jaimes has not had palpitations, syncope or near syncope. He denies claudication. There is no discoloration or ulceration of the lower extremities. He has had no TIA or stroke-like symptoms. The patient has no symptoms attributable to valvular heart disease. general He has had no ch est discomfort suggestive of ischemia. Mr. Jaimes has not had palpitations, syncope or near syncope. He denies claudication. There is no discoloration or ulceration of the lower extremities. He has had no TIA or stroke-like symptoms. The patient has no symptoms attributable to valvular heart disease. Dyspnea The patient visi ts the office to be evaluated for dyspnea (shortness of breath). The dyspnea began 5 months ago. It occurs every day. The dyspnea varies in duration. The patient rates the severity of the shortness of breath as mild to moderate. This is acute in nature. The patient's symptoms are consistent. The shortness of breath is aggravated by moderate activity, after the patient climbs 10 stairs. Relieving factors include rest. last known Echo (EF 0.50) - 10/20/2014. general He has had no ch est discomfort suggestive of ischemia. The patient denies orthopnea, PND, MCKINLEY, or edema. Mr. Jaimes has not had palpitations, syncope or near syncope. He denies claudication. There is no discoloration or ulceration of the lower extremities. He has had no TIA or stroke-like symptoms. The patient has no symptoms attributable to valvular heart disease. Functional Status Date Functional Assessmen t No Information Medications Administered Medication Instructions Dosage Effective Dates (start - stop) Status Comments metoprolol succinate ER 25 mg tablet,extended release 24 hr take 1 tablet by oral route every day 25 MG - No Longer Active dose increase Instructions Date Instruction Additional Infor carol ann PCP Wellness Visit PCP Wellness Visit PCP Wellness Visit PCP Wellness Visit PCP Wellness Visit Healthy Choice Educational Mater ials PCP Wellness Visit PCP Wellness Visit PCP Wellness Visit Healthy Choice Educational Mater ials Assessments Type Assessment Date No Information Patient Care Teams Name Effective Dates (start - stop) Status Members No Information
--- OUTSIDE RECORDS SUMMARY | 2024-10-12 10:40 | XMS_ITS | Continuity of Care Document ---
Author Name [facility] Organization [facility] Care Team Providers Care Compliance Engineer Products Name Role Phone [facility] Unavailable Unavailable Problems Combined list of problems from [facility] and [facility] facilities. It does not include entries that were removed or entered in error. Problem Status Onset Date Problem Type Date of Resolution Comments Source Bilateral hearing loss Active Condition [facility] Bilateral osteoarthritis of knees Active Condition [facility] History of Deep Vein Thrombosis ([facility] [id number]) Active Condition May 19, 2024 Entered By: MARY THOMPSON Comment: recurrent , protein S def [facility] History of kidney stone Active Condition [facility] HTN - Hypertension ([facility] [id number]) Active Condition [facility] Hyperlipidemia Active Condition [facility] Pain radiating to left shoulder Active Condition [facility] Therapeutic drug effect Active Condition [facility] Tinnitus Active Condition [facility] Diagnosis: ICD-10-CM Z51.81 Encounter for therapeutic drug level monitoring Active Diagnosis [facility] Diagnosis: ICD-10-CM Z86.718 Personal history of other venous thrombosis and embolism Active Diagnosis [facility] Diagnosis: ICD-10-CM M25.512 Pain in left shoulder Active Diagnosis [facility] Medications Combined list of outpatient medications from [facility] facilities.Medications provided include 1) outpatient medications from the last 15 months, and 2) patient-reported medications. Medication Details Route Status Patient Instructions Prescription Expires Prescription Number Last Dispense Date Ordering Provider Order Date Order Qty Source ACETAMINOPH EN 325MG TAB TAKE TWO TABLETS BY MOUTH FOUR TIMES A DAY NEEDED ORAL ACTIVE JAHAIRA BELLE 2024 [facility] APIXABAN 5MG TAB TAKE ONE TABLET BY MOUTH TWICE A DAY FOR ANTICOAG ULATION ORAL ACTIVE 08/05/2025 [id number] JAHAIRA BELLE Y S 2024 180 [facility] N APIXABAN 5MG TAB TAKE ONE TABLET BY MOUTH TWICE A DAY FOR ANTICOAG ULATION ORAL DISCONT INUED (EDIT) 05/20/2025 [id number] THOMPSON,A RMIDA A 2024 60 [facility] HYDROCHLORO THIAZIDE 25MG TAB TAKE ONE-HALF TABLET BY MOUTH ONCE A DAY ORAL ACTIVE PROUHET,R RJ M 2018 [facility] PRAVASTATIN NA 40MG TAB TAKE ONE TABLET BY MOUTH EVERY EVENING ORAL ACTIVE PROUHET,R RJ M 2018 [facility] Immunizations Combined list of available immunizations from the Department of Defense and [facility] Affairs facilities. Immunization Series Date Given Administered By Site Reaction Lot Number CVX Code Drug Linen Room Worker Status Comments Source INFLUENZA, HIGH-DOSE, TRIVALENT, PF 1 2023 135 complet ed HISTORICA L INFORMATI ON - FROM OTHER REGISTRY, [facility] N PNEUMOCOCCAL CONJUGATE PCV20, POLYSACCHARID E [id number] CONJUGATE, ADJUVANT, PF 1 2023 216 complet ed HISTORICA L INFORMATI ON - FROM OTHER REGISTRY, [facility] INFLUENZA, HIGH-DOSE, QUADRIVALENT 2022 ELVI MINAYA LEFT DELTO ID [id number] A 197 complet ed Completed Series, ADMINISTE RED AT [facility] INFLUENZA, HIGH-DOSE, QUADRIVALENT 1 2021 197 complet ed HISTORICA L INFORMATI ON - FROM OTHER REGISTRY, [facility] N PNEUMOCOCCAL CONJUGATE PCV20, POLYSACCHARID E [id number] CONJUGATE, ADJUVANT, PF 2021 216 complet ed [facility] COVID-19 (PFIZER), MRNA, LNP-S, PF, 30 MCG/0.3 ML DOSE 2 2020 208 complet ed [facility] COVID-19 (PFIZER), MRNA, LNP-S, PF, 30 MCG/0.3 ML DOSE 1 2020 208 complet ed [facility] ZOSTER RECOMBINANT 2 2019 187 complet ed [facility] INFLUENZA, INJECTABLE, QUADRIVALENT, PRESERVATIVE FREE 2018 150 complet ed [facility] ZOSTER RECOMBINANT 1 2018 187 complet ed [facility] TDAP 2018 115 complet ed Right Deltoid [facility] INFLUENZA, UNSPECIFIED FORMULATION 2017 88 complet ed per [facility] Results Combined list of recent chemistry, hematology and other laboratory results from Department of Defense and Veterans Affairs, ranging from 15 months to all on record, depending upon the facility. Order Name Results Value Reference Range Date Interpretation Specimen Comments Source CREATIN INE(EGF R) CREATININE [MASS/VOLUME ] IN SERUM OR PLASMA 0.97 mg/dL 0.7 - 1.3 2024 Specimen Type: PLASMA No comment entered. Ordering Provider: JAHAIRA BELLE Report Released Date/Time : May 20, 2024 01:33 PM Reporting Lab: [address] [phone] Performin g Lab: [address] [address] [facility] CREATIN INE(EGF R) GLOMERULAR FILTRATION RATE/1.73 SQ M.PREDICTED [VOLUME RATE/AREA] IN SERUM, PLASMA OR BLOOD BY CREATININE-B ASED FORMULA (CKD-EPI 2020) 81.4 60 2024 Specimen Type: PLASMA No comment entered. Ordering Provider: JAHAIRA BELLE Report Released Date/Time : May 20, 2024 01:33 PM Reporting Lab: [facility] [address] [place] [phone] 1 Performin g Lab: [address] [phone] [facility] HGB,HCT ,PLT HEMOGLOBIN [MASS/VOLUME ] IN BLOOD 16.3 g/dL 13.1 - 16.8 2024 Specimen Type: BLOOD No comment entered. Ordering Provider: JAHAIRA BELLE Report Released Date/Time : May 20, 2024 01:33 PM Reporting Lab: [address] [address] Performin g Lab: [address] [address] [facility] HGB,HCT ,PLT HEMATOCRIT [VOLUME FRACTION] OF BLOOD 48.3 38.2 - 48.4 2024 Specimen Type: BLOOD No comment entered. Ordering Provider: JAHAIRA BELLE Report Released Date/Time : May 20, 2024 01:33 PM Reporting Lab: [address] [address] Performin g Lab: [address] [phone] [facility] HGB,HCT ,PLT PLATELETS [#/VOLUME] IN BLOOD BY AUTOMATED COUNT 215 10*3/uL 150 - 400 2024 Specimen Type: BLOOD No comment entered. Ordering Provider: JAHAIRA BELLE Report Released Date/Time : May 20, 2024 01:33 PM Reporting Lab: [address] [address] Performin g Lab: [address] [address] [facility] Vital Signs Combined list of inpatient and outpatient Vital Signs from Department of Defense and Veterans Affairs, ranging from 12 months to all on record, depending upon the facility. Vital Sign Value Date Comments Source SYSTOLIC BLOOD PRESSURE 140 01/30/2024 13:53:05 [facility] DIASTOLIC BLOOD PRESSURE 82 01/30/2024 13:53:05 [facility] PULSE OXIMETRY 98 01/30/2024 13:53:05 S Angie QUIÑONEZ [facility] WEIGHT 203.6 01/30/2024 13:53:05 [facility] [place] [facility] BMI 29 kg/m2 01/30/2024 13:53:05 [facility] [place] [facility] PAIN 4 01/30/2024 13:53:05 [facility] [place] [facility] HEIGHT 70 01/30/2024 13:53:05 [facility] [place] [facility] TEMPERATURE 97.2 01/30/2024 13:53:05 ST. QUIÑONEZ [facility] PULSE 78 01/30/2024 13:53:05 [facility] RESPIRATION 18 01/30/2024 13:53:05 Heather QUIÑONEZ [facility] Encounters Combined list of: 1) Encounters from Department of [facility] Affairs facilities going backup to the last 18 months, not all VA inpatient encounters are included; 2) Encounters from the Department of [facility] facilities going backup to 280 months. Location Location Details Encounter Type Encounter Number Reason For Visit Attending Provider ADM Date DC Date Status Disposition Source [facility] Outpatient Encounter [id number] 12/16 [facility] OFFICE O/P EST MOD 30 MIN [id number] Diagnos is: ICD-10- CM M25.512 Pain in left shoulde r THOMPSON,AR MIDA A 01/29 [facility] Outpatient Encounter [id number] 04/25 [facility] N [facility] Outpatient Encounter [id number] 05/06 [facility] Outpatient Encounter [id number] 05/08 [facility] Outpatient Encounter [id number] 05/18 [facility] Outpatient Encounter [id number] 05/19 [facility] Outpatient Encounter [id number] 05/[address] [facility] Outpatient Encounter [id number] 05/19 [facility] NQHP OL DIG ASSMT&MGMT 11-20 [id number] Diagnos is: ICD-10- CM Z86.718 Persona l history of other venous thrombo sis and embolis rosie CHRISTY BELLE 05/19 [facility] MTMS BY PHARM GANG SAWYER 15 MIN [id number] Diagnos is: ICD-10- CM Z51.81 Encount er for therape utic drug level monitor fabio CHRISTY BELLE 05/20 [facility] Outpatient Encounter [id number] 05/20 [facility] MTMS BY PHARM EST 15 MIN [id number] Diagnos is: ICD-10- CM Z51.81 Encount er for therape utic drug level monitor fabio CHRISTY BELLE 06/15 [facility] MTMS BY PHARM EST 15 MIN [id number] Diagnos is: ICD-10- CM Z51.81 Encount er for therape utic drug level monitor fabio CHRISTY BELLE 08/04 [facility] Social History Combined list of available smoking, tobacco, and other social history from Department of Defense and Veterans Affairs facilities. Social History Type Response [facility]-TOBACCO NEVER USED CIGARETTES 01/30/2024 [facility] History of tobacco use MD-TOBACCO NEVER USED OTHER TYPE 01/30/2024 [facility] History of tobacco use [facility]-TO[facility]ACCO NEVER USED 01/31/2023 [facility] History of tobacco use MD-TOBACCO FORMER USER 11/14/2021 [facility] History of tobacco use VA-TOBACCO NEVER USED 11/01/2020 [facility] History of tobacco use VA-TOBACCO NEVER USED 05/29/2018 [facility] History of tobacco use VA-TOBACCO NEVER USED 05/27/2018 [facility] This section is an empty social history section. [facility] Plan of Care List of future care activities from Department of Veterans Affairs facilities. Additional future care activities may be listed in the Assessment and Plan section. Date/Time Care Activity Care Activity Detail Facili ty 02/01/2025 AMBULATORY - MEDICINE AMBULATORY - MEDICI NE [facility] Advance Directives List of completed, amended, or rescinded Advance Directives on record at Department of Veterans Affairs facilities. An actual copy of the Directive is not included. Date Advance Directive Provider Source 12/10/2018 ADVANCE DIRECTIVE ERIK PITTMAN [facility]
--- OUTSIDE RECORDS SUMMARY | 2024-10-12 10:40 | XMS_ITS | Clinical Summary ---
Author Organization [facility] [employer] Address [address] 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 This disclosure is being madepursuant to the Care Everywhere program and may not contain all information available regarding this patient. Last updated 17.[facility] [employer] Allergies No known active allergies Medications * Be aware that medications may not be up to date on this document. Alwaysverify current medications with the patient. hydrocodone-acet aminophen (NORCO) 5-325 MG tablet Take 1-2 Tabs by mouth every 6 hours as needed for Pain. 20 Tab 0 08/12/2011 Active ondansetron (ZOFRAN) 4 MG tablet Take 1 Tab by mouth every 4 hours as needed for Nausea/Vomi ting. 10 Tab 0 08/12/2011 Active hydrocodone-acet aminophen (NORCO) 5-325 MG tablet Take 1 Tab by mouth every 6 hours as needed for Pain. 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 Gender Identity Not on file Sexual Orientation Not on file Last Filed Vital Signs Vital Sign Reading Time Taken Comments Blood Pressure 118/83 09/06/2011 3:00 PM CDT Pulse 67 09/06/2011 3:00 PM CDT Temperature 36.2 C (97.1 F) 09/06/2011 2:29 PM CDT Respiratory Rate 16 09/06/2011 3:00 PM CDT Oxygen Saturation 100% 09/06/2011 2:29 PM CDT Inhaled Oxygen Concentration - - Weight 81.6 kg (180 lb) 09/05/2011 12:56 PM CDT Height 172.7 cm (5' 8) 09/05/2011 12:56 PM CDT Body Mass Index 27.37 09/05/2011 12:56 PM CDT Plan of Treatment Health Maintenance Due Date Last Done Comments COLOGUARD (AGES 45-75) - COL ON CA SCREENING 1948 COLON MONITORING 1948 COLONOSCOPY - COLON CA SCREENING 1948 CT COLONOGRAPHY - COLON CA SCREENING 1948 Colorectal Cancer Screening 1948 FIT - COLON CA SCREENING 1948 FLEX SIG - COLON CA SCREENING 1948 LIPID TESTING 1948 HEPATITIS C SCREENING 11/23/1966 DTAP/TDAP/TD VACCINES (1 - Tdap) 11/28/1967 PNEUMOCOCCAL VACCINE 50+ (1 of 1 - PCV) 1998 ZOSTER VACCINE (1 of 2) 1998 COVID-19 VACCINE ( - 2023-2 5 season) 2023 Respiratory Syncytial Virus (RSV) Vaccine Pt: or over 60 yrs (1 - 1-dose 75+ series) 11/28/2023 DEPRESSION SCREENING 03/18/2024 INFLUENZA VACCINE (#1) 2024 HEPATITIS B VACCINE Aged Out No longe r eligible based on patient's age to complete this topic HIB VACCINE Aged Out No longer eligi ble based on patient's age to complete this topic HPV VACCINE Aged Out No longer eligi ble based on patient's age to complete this topic MENINGOCOCCAL (Group B) VACC INE SHARED DECISION-MAKING Aged Out No longer eligibl e based on patient's age to complete this topic MENINGOCOCCAL GROUPS A/C/Y/W VACCINE Aged Out No longer eligible b ased on patient's age to complete this topic Advance Directives * FULL RESUSCITATION (Latest Code Status on File) Date Activated Date Inactivated Comments 08/12/2011 12:10 PM 08/13/2011 1:56 AM * FULL RESUSCITATION Date Activated Date Inactivated Comments 08/11/2011 3:46 PM 08/12/2011 12:10 PM
== END 2024-10-12 10:12 | disposition home or self-care (01) ==
PROVIDERS: PCP Physician Assistant Medical; Visit Provider Urology
DX: N20.0 Calculus of kidney (principal)
CPT/HCPCS: 74018